=== PATIENT | female | born 1990 | race Caucasian/White ===

== ENCOUNTER 2023-01-14 18:30 | Outpatient (RCR) | payer SELFPAY ==
--- NOTE | 2023-01-10 16:07 | HP.PTEVAL_ITS ---
Patient's Visit Information ISH ABBASI is a 32 year old F referred to Physical Therapy by Dr. Hank Jauregui MD with a diagnosis of ACUTE BILTAERAL LOW BACK PAIN WITHOUT SCIATICA. Date of Evaluation: 01/10/23 Physical Therapist: Jack Orona, PT, Cert MDT, OCS - Visit Plan Frequency: 2x /Week Duration: 4 Weeks Plan: PT INTERVETIONS AVTAR EX'S ,MANUAL THERAPY ,PROGRESS TO DLS ,PSOTURAL EX'S AND MODALTIES FOR PAIN RELIEVE - Subjective This 32 y/o female presents to physical therapy with low back pain. Patient `~ 6weeks twisting and bending at work . Patient had pain following day. Seen chiropractor following week had adjustment did not help. Seen Dr. and urgent care had x-rays -. Prescribed medication diclofenac ,muscle relaxer. Aggravating factors standing/walking, bending/lifting and sitting. Alleviating factors rest. Denies paresthesia/tingling in legs. Coughing/sneezing+. Bowel/bladder-. Pain affects sleeping. Patient back injury in HS . Patient pain affects QOL and function. Goals to no pain. Plan to have orthopedic Back DR consult January 22. SOCAIL: single. [facility] [employer] - Pain Bilateral Back Pain Intensity (Out of 10): 10 Pain Intensity Range: 10 - Objective POSTURE: mild forward posture guarded. GAIT: ambulates guarded gait slow mild forward posture reciprocal pattern. NEURO: denies paresthesia/tingling ,reflexes L3-4,L4-5,L5-S1 2/3. LUMBAR ROM: flexion severe loss ,extension severe pain , side glides mod loss. FLEXABILIY: mod tight. MMT: quads/hams 4/5 ,hip flexion/abduction peak force 0 ,ankle GTE 4/5 - Special Tests L/S Slump test left side: Positive L/S Slump test right side: Positive L/S Left Straight Leg Raise: Positive L/S Right Straight Leg Raise: Positive Lumbar Standing: Flexion - Mechanical Response: No effect Lumbar Standing: Flexion - Symptoms During Testing: Increases Lumbar Standing: Flexion - Symptoms After Testing: Worse Lumbar Standing: Extension - Mechanical Response: No effect Lumbar Standing: Extension - Symptoms During Testing: Increases Lumbar Standing: Extension - Symptoms After Testing: Worse Lumbar Standing: Right Side Glides - Mechanical Response: No effect Lumbar Standing: Right Side [place] - Symptoms During Testing: No effect Lumbar Standing: Right Side [place] - Symptoms After Testing: No effect Lumbar Standing: Left Side [place] - Mechanical Response: No effect Lumbar Standing: Left Side [place] - Symptoms During Testing: No effect Lumbar Standing: Left Side [place] - Symptoms After Testing: No effect Lumbar Lying: Flexion - Mechanical Response: No effect Lumbar Lying: Flexion - Symptoms During Testing: Increases Lumbar Lying: Flexion - Symptoms After Testing: Worse Lumbar Lying: Extension - Mechanical Response: No effect Lumbar Lying: Extension - Symptoms During Testing: Increases Lumbar Lying: Extension - Symptoms After Testing: No worse - Balance/Special Test Scores Oswestry Low Back Score: 38 - Goals Goal 1:: Patient to be I with HEP for lumbar . Goal Time Frame: 4-6 Weeks Goal 2:: Patient improve posture/body mechanics 80% of the time. Goal 3:: Patient to improve lumbar ROM for function of recovery for job demands Goal Time Frame: 4-6 Weeks Goal 4:: Patient to improve back oswestry score by 5 points or > to improve QOL Goal Time Frame: 4-6 Weeks Goal 5:: Patient to demonstrate 50% improvement with decrease pain and improved function Goal Time Frame: 4-6 Weeks - Rehabilitation Potential Physical Therapy Diagnosis: This patient has possible symmetrical disc derangement with pain with positioning ,motion testing ,poor ROM weakness hip thus benefit from skilled PT Rehabilitation Potential: Good - Anticipated Interventions Patient/Client Instruction: Educate patient on: Condition, Plan of Care For the Purpose of:: To decrease pain, To improve nutrient delivery to tissue, To improve muscle performance and motor function, To improve ability to perform ADL's, To increase tolerance to activity/condition/position, To improve ability of physical actions for home/community/work/leisure, To improve gait and locomotor functions, To improve health of tissue, To decrease soft tissue restriction, To increase flexibility/ROM, To improve balance, To reduce risk of recurrence, To prevent re-injury Therapeutic Exercise to Include: Strength training, Body mechanics, Postural training, Flexibilty training, Dynamic Lumbar Stabilization, [place] Exercises For the Purpose of:: To decrease pain, To increase ROM, To improve muscle performance and motor function, To increase tolerance to activity/condi tion/position, To improve ability of physical actions for home/community/work/leisure, To improve gait and locomotor functions, To improve health of tissue, To decrease soft tissue restriction, To increase flexibility/ROM, To reduce risk of recurrence, To prevent re-injury TENS: Yes IF ES: Yes Other electric stimulation: Yes Cryotherapy (ice pack, ice massage): Yes Thermo therapy (hot pack): Yes Ultrasound (thermal/non thermal): Yes For the Purpose of:: To decrease swelling/inflammation, To increase ROM, To improve nutrient delivery to tissue, To increase oxygenation perfusion, To improve health of tissue, To decrease soft tissue restriction, To increase flexibility/ROM Thank you for the opportunity to evaluate your patient. For Medicare and Medicare HMO plans, please review the plan of care and approve it. It will need to be FAXED BACK to us at [phone] for Medicare purposes. For Medicare only, by signing this I certify the plan of care. Please let me know if there are questions or concerns regarding this plan of care. Physician Signature: Date:
--- NOTE | 2023-05-14 10:54 | HP.PT.NRP ---
Patient Information Patient Information: ISH ABBASI was seen in my office for initial evaluation on 01/10/23. The following Plan of Care was established for this patient: POC Established Initial Frequency: 2x /Week Initial Duration: 4 Weeks Anticipated Interventions Patient/Client Instruction: Educate patient on: Condition and Plan of Care For the Purpose of:: To decrease pain, To improve nutrient delivery to tissue, To improve muscle performance and motor function, To improve ability to perform ADL's, To increase tolerance to activity/condition/position, To improve ability of physical actions for home/community/work/leisure, To improve gait and locomotor functions, To improve health of tissue, To decrease soft tissue restriction, To increase flexibility/ROM, To improve balance, To reduce risk of recurrence and To prevent re-injury Therapeutic Exercise to Include: Strength training, Body mechanics, Postural training, Flexibilty training, Dynamic Lumbar Stabilization and [place] Exercises For the Purpose of:: To decrease pain, To increase ROM, To improve muscle performance and motor function, To increase tolerance to activity/condition/position, To improve ability of physical actions for home/community/work/leisure, To improve gait and locomotor functions, To improve health of tissue, To decrease soft tissue restriction, To increase flexibility/ROM, To reduce risk of recurrence and To prevent re-injury TENS: Yes IF ES: Yes Other electric stimulation: Yes Cryotherapy (ice pack, ice massage): Yes Thermo therapy (hot pack): Yes Ultrasound (thermal/non thermal): Yes For the Purpose of:: To decrease swelling/inflammation, To increase ROM, To improve nutrient delivery to tissue, To increase oxygenation perfusion, To improve health of tissue, To decrease soft tissue restriction and To increase flexibility/ROM Last Seen Last Seen: This patient was last seen in our office . Pertinent comments regarding their Physical therapy will appear below: Patient was seen for PT for lumbar Pain with possible disc HNP recommend returning to [facility] At this point I will be discontinuing this patient from physical therapy. I would be happy to see this patient again in the future if found appropriate by the physician. Thank you! Jack Orona, PT, Cert MDT, OCS Balance/Gait/Functional tests Balance/Special Test Scores Oswestry Low Back Score: 38
== END 2023-01-14 19:00 | disposition home or self-care (01) ==
LOC: PT 18:30
PROVIDERS: PCP Family Medicine; Referring Provider Family Medicine; Visit Provider Family Medicine
DX: M54.50 Low back pain, unspecified (principal)
CPT/HCPCS: 97110; 97161

== ENCOUNTER → 2025-06-18 | Outpatient (CLI) | payer BC, SELFPAY ==
--- NOTE | 2025-06-18 12:00 | MASS_PTH ---
PATIENT: ISH ABBASI LOC: [facility] U#:[id number] AGE/SX: 34/F ROOM: RE06/18/[address]: Dr. Ramiro Abbasi MD : 1990 BED: DIS: 06/18/2025 SPEC #: [id number] RECD: 06/18/25 15:10 STATUS: [place] REQ #: [id number] NISA: 06/18/25 12:[address]: Ramiro Abbasi DEPT: SURGICAL PATHOLOGY RECD BY: Nicholas Kim ENTERED: 06/18/25 15:58 SP TYPE: Mass OTHR DR: Dr. Hank Jauregui MD Tissues: A - Finger, NOS Procedures: Surgery Specimen Level III HEADER OPERATION: Excision mass of right long finger PRE-OP DIAGNOSIS: Right long finger mass TISSUE SUBMITTED: A- Right long finger mass MICROSCOPIC DIAGNOSIS A. Soft tissue, right long finger, excision: * Digital mucous cyst MICROSCOPIC DESCRIPTION Slides are reviewed. GROSS DESCRIPTION A. Received in formalin labeled with the patient's name and date of . Designated as mass right long finger is a 0.9 x 0.7 x 0.3 cm intact cyst with a portion of, haywood-white fibrous tissue. 1 is bisected revealing clear gelatinous material. Entirely submitted in 1 cassette. [place] 06/18/2025 CPT:71094
--- OUTSIDE RECORDS SUMMARY | 2025-06-18 16:55 | XMS RPT_ITS | CCD ---
Author Organization [facility] CliniSyms Care Team Providers Care Sample Sewer Name Role Phone VACCARIELLO, SAIMA Unavailable Unavailable VACCARIELLO, SAIMA Unavailable Unavailable VACCARIELLO, SAIMA Unavailable Unavailable VACCARIELLO, SAIMA Unavailable Unavailable PROVIDER, UNKNOWN Unavailable Unavailable PROVIDER, UNKNOWN Unavailable Unavailable PROVIDER, UNKNOWN Unavailable Unavailable AXEL FRANK Unavailable Unavailable AXEL FRANK Unavailable Unavailable AXEL FRANK Unavailable Unavailable VACCARIELLO, SAIMA Unavailable Unavailable PROVIDER, UNKNOWN Unavailable Unavailable PROVIDER, UNKNOWN Unavailable Unavailable PROVIDER, UNKNOWN Unavailable Unavailable SAIRA, BYRON T Unavailable Unavailable SAIRA, BYRON T Unavailable Unavailable SAIRA, BYRON T Unavailable Unavailable VACCARIELLO, SAIMA Unavailable Unavailable PROVIDER, UNKNOWN Unavailable Unavailable PROVIDER, UNKNOWN Unavailable Unavailable PROVIDER, UNKNOWN Unavailable Unavailable SAIRA, BYRON T Unavailable Unavailable SAIRA, BYRON T Unavailable Unavailable VACCARIELLO, SAIMA Unavailable Unavailable SAIRA, BYRON T Unavailable Unavailable VACCARIELLO, SAIMA Unavailable Unavailable PROVIDER, UNKNOWN Unavailable Unavailable PROVIDER, UNKNOWN Unavailable Unavailable PROVIDER, UNKNOWN Unavailable Unavailable JOSE LUIS Unavailable Unavailable JOSE LUIS Unavailable Unavailable JOSE LUIS Unavailable Unavailable VACCARIELLO, SAIMA Unavailable Unavailable PROVIDER, UNKNOWN Unavailable Unavailable PROVIDER, UNKNOWN Unavailable Unavailable PROVIDER, UNKNOWN Unavailable Unavailable Vaccariello, Saima Referring Unavailable Vaccariello, Saima Attending Unavailable Vaccariello, Saima Primary Care Unavailable Saima Ferraro MD Unavailable [facility] Unavailable Dr. Jose Luis MD Unavailable Dr. Ray Duffy DO Unavailable [phone] Laurel Silva MD Unavailable America BAEZ, Martha Unavailable Ata BAEZ, Dorinda Unavailable Unavailable Axel Frank MD Unavailable Maryan Whitehead Unavailable Unavailable Sherri GUAN, Amy A Unavailable Unavaila johan Abbasi RN, Gloria Unavailable [phone] [place] COMPUTER SYSTEMS INFORMATION DIRECTOR, Mary K Unavailable Unavai lable Salomón COMPUTER SYSTEMS INFORMATION DIRECTOR, Laurel M Unavailable Unavailab le Demarco COMPUTER SYSTEMS INFORMATION DIRECTOR, Balbina Torres Unavailable Unavailab le Vess COMPUTER SYSTEMS INFORMATION DIRECTOR, Darrell Cesar Unavailable Unavailable Wengerd COMPUTER SYSTEMS INFORMATION DIRECTOR, Livier Unavailable Unavailabl e Unavailable Unavailable Allergies Allergy Classification Reported Allergen(s) Allergy Type Date of Onset Reaction(s) Facility (1 source) Nyquil Drug allergy (disorder) [facility] Repository (1 source) No Known Allergies; Translations: [No Known Allergies] Propensity to adverse reactions (disorder) [facility] Repository Medications Completed/Discontinued Medications Medication Drug Class(es) Dates Sig (Normalized) Sig (Original) augmented betamethasone 0.5 mg/ml topical cream (1 source) Corticosteroid Start: 8 End: 9 Betamethasone Dipropionate Aug 0.05 % External Cream ; 1 (one) Application Application aaa bid for 0 days Quantity: 60 {Gram} Refills: 2 Ordered: 18-Sep-2018 SASHA Cross Start: 14-Oct-2017 End: 18-Sep-2018 Status: Inactive cephalexin 500 mg oral capsule (1 source) Cephalosporin Antibacterial Start: 7 End: 8 take 2 capsules by mouth twice daily Cephalexin 500 MG Oral Capsule ; 2 (two) Capsule bid for 10 days Quantity: 40 {Capsule} Refills: 0 Ordered: 10-Sep-2017 MD Axel Frank Start: 10-Sep-2017 End: 20-Sep-2017 Status: Inactive cyclobenzaprine hydrochloride 10 mg oral tablet (1 source) Muscle Relaxant Start: 3 End: 5 cyclobenzaprine 10 mg tablet ; 1 (one) Tablet q8hrs, prn pain for 0 days Quantity: 30 {Tablet} Refills: 0 Ordered: 27-Jan-2025 SASHA Cross Start: 27-Dec-2022 End: 27-Jan-2025 Status: Inactive diclofenac potassium 50 mg oral tablet (1 source) Nonsteroidal Anti-inflammatory Drug Start: 3 End: 5 diclofenac potassium 50 mg tablet ; 1 (one) Tablet q12hrs with food for 0 days Quantity: 20 {Tablet} Refills: 0 Ordered: 27-Jan-2025 SASHA Cross Start: 27-Dec-2022 End: 27-Jan-2025 Status: Inactive Ethinyl Estradiol / norgestimate (1 source) Progestin, Estrogen Start: 8 End: 9 take 1 tablet by mouth once daily Sprintec 28 0.25-35 MG-MCG Oral Tablet ; 1 (one) Tablet Tablet daily for 0 days Quantity: 3 {Package} Refills: 0 Ordered: 18-Sep-2018 SASHA Cross Start: 12-Feb-2018 End: 18-Sep-2018 Status: Inactive ketotifen 0.25 mg/ml ophthalmic solution (1 source) Histamine-1 Receptor Inhibitor Start: 5 End: 6 take 1 drop(s) into the eye(s) twice daily KETOTIFEN FUMARATE, 0.025% (Ophthalmic Solution) ; 1 (one) drop to each eye twice daily for 0 days Quantity: 1 {Bottle} Refills: 1 Ordered: 11-Apr-2016 SASHA Cross Start: 31-May-2015 End: 11-Apr-2016 Status: Inactive loratadine 10 mg oral tablet (1 source) Start: 5 End: 6 take 1 tablet by mouth once daily LORATADINE, 10MG (Oral Tablet) ; 1 (one) Tablet daily for 0 days Quantity: 30 {Tablet} Refills: 1 Ordered: 11-Apr-2016 SASHA Cross Start: 31-May-2015 End: 11-Apr-2016 Status: Inactive 1 ml medroxyPROGESTERone acetate 150 mg/ml injection (2 sources) Progestin Start: 7 End: 8 Depo-Provera 150 MG/ML Intramuscular Suspension ; 1 (one) Suspension Suspension as directed for 90 days Quantity: 1 {Vial} Refills: 3 Ordered: 14-Oct-2017 SASHA Cross Start: 01-Apr-2017 End: 14-Oct-2017 Status: Inactive oxyCODONE hydrochloride 5 mg oral tablet (1 source) Opioid Agonist Start: 3 End: 5 oxyCODONE 5 mg tablet ; 1 (one) Tablet qhs, prn severe pain for 0 days Quantity: 7 {Tablet} Refills: 0 Ordered: 27-Jan-2025 SASHA Cross Start: 27-Dec-2022 End: 27-Jan-2025 Status: Inactive pantoprazole 40 mg delayed release oral tablet (1 source) Proton Pump Inhibitor Start: 3 End: 5 pantoprazole 40 mg tablet,delayed release ; 1 (one) Tablet daily for 0 days Quantity: 30 {Tablet} Refills: 1 Ordered: 27-Jan-2025 SASHA Cross Start: 10-Oct-2022 End: 27-Jan-2025 Status: Inactive sulfamethoxazole 800 mg / trimethoprim 160 mg oral tablet (1 source) Dihydrofolate Reductase Inhibitor Antibacterial, Sulfonamide Antimicrobial Start: 7 End: 7 take 1 tablet by mouth twice daily Sulfamethoxazole-Tr imethoprim 800-160 MG Oral Tablet ; 1 (one) Tablet bid for 0 days Quantity: 20 {Tablet} Refills: 0 Ordered: 10-Sep-2017 MD Axel Frank Start: 06-Sep-2017 End: 10-Sep-2017 Status: Inactive Problems Active Problems Problem Classification Problem Date Documented Date Episodic/Chronic Abdominal pain (4 sources) Right upper quadrant pain; Translations: [Right upper quadrant pain] Onset: 02-19-2018 02-17-2018 Episodic Allergic reactions (5 sources) Inflammatory dermatosis; Translations: [Dermatitis, unspecified] 10-14-2017 Episodic Biliary tract disease (2 sources) Calculus of bile duct without cholangitis or cholecystitis without obstruction; Translations: [Disease of gallbladder, unspecified] Onset: 02-19-2018 Episodic Contraceptive and procreative management (20 sources) Patient encounter status; Translations: [Encounter for surveillance of injectable contraceptive] 04-03-2017 Episodic Esophageal disorders (2 sources) Gastroesophageal reflux disease; Translations: [Gastro-esophageal reflux disease without esophagitis] 12-27-2022 Chronic Immunizations and screening for infectious disease (1 source) Requires a hepatitis A vaccination; Translations: [Encounter for immunization] 09-14-2015 Episodic Menstrual disorders (2 sources) Amenorrhea; Translations: [Amenorrhea, unspecified] 02-12-2018 Chronic Open wounds of extremities (1 source) Dog bite of calf; Translations: [Open bite, left lower leg, initial encounter] 01-02-2016 Episodic Other complications of (2 sources) Rhesus isoimmunization, unspecified as to episode of care or not applicable 06-21-2014 Episodic Other connective tissue disease (2 sources) Ganglion of hand; Translations: [Ganglion, unspecified hand] 01-27-2025 Episodic Other connective tissue disease (1 source) Pain in left foot; Translations: [Pain in left foot] 06-24-2017 Episodic Other inflammatory condition of skin (2 sources) Pruritus, unspecified; Translations: [Unspecified pruritic disorder] Onset: 10-15-2017 10-15-2017 Episodic Other injuries and conditions due to external causes (1 source) Injury of muscle and tendon of long flexor muscle of toe at ankle and foot level; Translations: [Unspecified injury of muscle and tendon of long flexor muscle of toe at ankle and foot level, left foot, subsequent encounter] 02-18-2019 Episodic Other nutritional; endocrine; and metabolic disorders (8 sources) Body mass index 40+ - severely obese; Translations: [Body mass index (BMI) 40.0-44.9, adult] 10-08-2022 Chronic Other nutritional; endocrine; and metabolic disorders (3 sources) Morbid obesity; Translations: [Morbid (severe) obesity due to excess calories] 12-27-2022 Chronic Other nutritional; endocrine; and metabolic disorders (3 sources) Body mass index 30+ - obesity; Translations: [Obesity, unspecified] 10-08-2022 Chronic Other and delivery including normal (2 sources) care status; Translations: [Encounter for routine follow-up] 10-27-2014 Episodic Other screening for suspected conditions (not mental disorders or infectious disease) (2 sources) care status; Translations: [Encounter for screening of mother] 08-23-2014 Episodic Other skin disorders (2 sources) Folliculitis; Translations: [Follicular disorder, unspecified] 09-10-2017 Episodic Residual codes; unclassified (1 source) Immunization not carried out because of patient refusal; Translations: [Vaccination not carried out because of patient refusal] 10-08-2022 Episodic Residual codes; unclassified (4 sources) Influenza vaccination declined; Translations: [Immunization not carried out because of patient refusal] 10-14-2017 Episodic Residual codes; unclassified (1 source) Non-smoker; Translations: [Other specified health status] 12-27-2022 Episodic Residual codes; unclassified (1 source) Not up to date with immunizations; Translations: [Other specified personal history presenting hazards to health] 09-18-2018 Episodic Skin and subcutaneous tissue infections (1 source) Cellulitis; Translations: [Cellulitis, unspecified] 02-15-2017 Episodic Spondylosis; intervertebral disc disorders; other back problems (1 source) Acute low back pain; Translations: [Lumbago] 12-27-2022 Episodic Unclassified (1 source) Low back pain, unspecified; Translations: [Low back pain, unspecified] Onset: 01-18-2023 Unclassified (1 source) deliveries 10-08-2022 Comment on above: 1. Unclassified (1 source) Number of Children 10-08-2022 Comment on above: 1. Unclassified (1 source) Number of Pregnancies 10-08-2022 Comment on above: 1. Past or Other Problems Problem Classification Problem Date Documented Da te Episodic/Chronic Unclassified (1 source) Back pain - The onset of the back pain has been sudden and has been occurring in a persistent pattern for 3 weeks. The pain is characterized as a dull ache. The pain is located in the lower back. Note for Back pain: -Went to Urgent care last week and given prednisone and cyclobenzaprine. 12-27-2022 Unclassified (2 sources) Well adult female - The patient feels well with no complaints, has good energy level and is sleeping well. The patient is not using any method of contraception at this time. The patient takes no supplemental vitamins & iron. The patient exercises none (walks over 10k steps daily at work). The patient sleeps 6 hours per night. 10-08-2022 Unclassified (1 source) [ADDITIONAL REASON] Abdominal pain - The onset of the abdominal pain has been gradual and has been occurring for months. The pain is described as a moderate burning, dull ache and pressure sensation. Note for Abdominal pain: -Also reports something comes out of her umbilicus on a regular basis. 10-08-2022 Unclassified (1 source) Pre-operative clearance - Surgical procedure(s) planned: other (left foot surgery). Date of procedure: (03/06/19) 02-18-2019 Unclassified (1 source) Abdominal pain - The onset of the abdominal pain has been acute and has been occurring in a persistent pattern for 6 days. The course has been increasing. The pain is described as a severe sharp pain, pressure sensation and fullness. The pain is located in the right upper quadrant and radiates to the right shoulder. The symptoms are aggravated by meals (1/2 to 1 hour after eating) but have no relieving factors. The symptoms have been associated with abdominal distention, amenorrhea (stopped Depo March 2017 , has not had menses since then-has not had intercourse), bloating, diarrhea, heartburn and nausea, while the symptoms have not been associated with constipation or vomiting. Note for Abdominal pain: reviewed by [facility] 02-17-2018 Unclassified (1 source) Rash - The onset of the rash has been gradual and has been occurring in a persistent pattern for 4 weeks. The rash is characterized as red. The rash was first seen on the lower extremity. It spread to the trunk and the lower extremity. There has been associated itching and erythema. Note for Rash: -Seen 09/06 when child was in and given bactrim for folliculitis. Seen 09/10 by [facility] who said she was allergic to sulfa and put her on cephalexin. She then went to ER mid September and was given something for itching but she does not know what it was. 10-15-2017 Unclassified (1 source) [ADDITIONAL REASON] Transition into care - The patient is transitioning into care from an emergency room and a summary of care was not provided. 10-15-2017 Unclassified (1 source) Rash - The onset of the rash has been acute. Note for Rash: Was seen 09-06-17 with diagnosis of foliculitis and given a prescription for Bactrim DS. Itchy rash has been spreading. 09-10-2017 Unclassified (1 source) Foot pain - The pain is in the left foot and is located in the dorsal foot. The onset of the foot pain was sudden and has been occurring in a persistent pattern for 1 day. The course has been increasing. The pain is moderate. The pain is characterized as a sharp stabbing. The pain is aggravated by physical activity. The pain has not been relieved by anything. The symptoms have been associated with painful ROM, but have not been associated with swelling, joint swelling or fever. There have been no previous diagnostic tests. There have been no previous evaluations. 06-24-2017 Unclassified (1 source) umbilicus drainage - 2 weeks ago had one episode of foul smelling drischarge from umbilicus. Continues to have odor but no drainage. 02-15-2017 Unclassified (1 source) Pelvic pain - The onset of the pelvic pain began gradually over time and has been occurring for months. The pain is described as a dull ache. Menstruation is absent (due to Depo). Currently : no. 04-19-2016 Unclassified (1 source) dog bite - Bit on the right calf 4 days ago by a relatives house dog. It was unprevoked. It is still sore. 01-02-2016 Unclassified (1 source) Cold Symptoms - Symptoms include sneezing, nasal congestion (and chest congestion), sore throat, hoarseness, productive cough, fever (have felt feverish), chills, general malaise, headache and facial pain (woke up this morning with her top lip swollen. ), but do not include runny nose or ear pain. The onset was sudden 5 hour(s) ago. The symptoms occur constantly. The patient describes this as moderate in severity and unchanged. The patient is not currently being treated for this problem. Risk factors do not include smoking. The patient has not been exposed to an individual with a cough, an individual with an upper respiratory infection, an individual with similar symptoms, an individual with strep or secondhand smoke. Medical history includes seasonal allergies (usually spring; no known allergic exposure), but patient denies history of recurrent sinusitis, asthma, tonsillectomy or recurrent ear infections. Note for Upper respiratory infection: Reports that her eyes are burning. Has reddened scleras bilaterally and has watery eyes (just started today) 05-31-2015 Unclassified (1 source) Post- visit - The patient is here for a scheduled follow-up visit after an emergent (failure to progress after SROM). There were no complications. The patient feels well with no complaints, is sleeping well and has good energy level. There are no urinary problems. There are no bowel problems. Perineum/wound: abdominal wound healing well. The patient is formula feeding the . There are no feeding difficulties. Menstruation: Last menstrual period date: (now). Patient states that sexual activity has not resumed and contraception is not used. The patient has resumed work and resumed physical activity. Patient states that she is coping/adjusting to motherhood well and family is interacting well with . 10-27-2014 Unclassified (1 source) s/p c/s incision check 09-23-2014 Unclassified (1 source) visit - The patient is here for a 35 week visit. 08-23-2014 Unclassified (1 source) visit - The patient is here for a 33 week visit. 08-09-2014 Unclassified (1 source) visit - The patient is here for a 30 week visit. 07-19-2014 Unclassified (1 source) visit - The patient is here for a 26 week visit. 06-21-2014 Unclassified (1 source) visit - The patient is here for a 21 week visit. 05-19-2014 Unclassified (1 source) visit - The patient is here for a 17 week visit. 04-19-2014 Unclassified (1 source) visit - The patient is here for a 13 week visit. 03-22-2014 Unclassified (1 source) visit (initial) - The patient suspects she is due to a positive home test. Last menstrual period: 8 weeks ago. - (1). There has been no vaginal discharge. There has been no vaginal bleeding. There have been no urinary problems. 02-19-2014 Results Test Name Value Interpretation Reference Range Facility Inital Evaluation (1) - PT 01-10-2023 Inital Evaluation (1) - PT [facility] [address] [place] [address]. [address] [place] [address] / REHABILITATION SERVICES INITIAL EVALUATION MR#: [id number] Acct: [id number] Name: BRYNN ABBASI Rep #: [id number] : 1990 32 From: Jack Orona PT, Cert. T, OCS Referring Dr.: Dr. Saima Ferraro MD Status: REG RCR Insurance: [facility] [employer] SELF PAY INSURANCE Patient's Visit Information BRYNN ABBASI is a 32 year old F referred to Physical Therapy by Dr. Saima Ferraro MD with a diagnosis of ACUTE BILTAERAL LOW BACK PAIN WITHOUT SCIATICA. Date of Evaluation: 01/10/23 Physical Therapist: Jcak Orona, PT, Cert MDT, OCS - Visit Plan Frequency: 2x /Week Duration: 4 Weeks Plan: PT INTERVETIONS AVTAR EX'S ,MANUAL THERAPY ,PROGRESS TO DLS ,PSOTURAL EX'S AND MODALTIES FOR PAIN RELIEVE - Subjective This 32 y/o female presents to physical therapy with low back pain. Patient ` 6weeks twisting and bending at work . Patient had pain following day. Seen chiropractor following week had adjustment did not help. Seen DrRachel and urgent care had x-rays -. Prescribed medication diclofenac ,muscle relaxer. Aggravating factors standing/walking, bending/lifting and sitting. Alleviating factors rest. Denies paresthesia/tingling in legs. Coughing/sneezing+. Bowel/bladder-. Pain affects sleeping. Patient back injury in HS . Patient pain affects QOL and function. Goals to no pain. Plan to have orthopedic Back DR consult January 22. SOCAIL: single. [facility] [employer] - Pain Bilateral Back Pain Intensity (Out of 10): 10 Pain Intensity Range: 10 - Objective POSTURE: mild forward posture guarded. GAIT: ambulates guarded gait slow mild forward posture reciprocal pattern. NEURO: denies paresthesia/tingling ,reflexes L3-4,L4-5,L5-S1 2/3. LUMBAR ROM: flexion severe loss ,extension severe pain , side glides mod loss. FLEXABILIY: mod tight. MMT: quads/hams 4/5 ,hip flexion/abduction peak force 0 ,ankle GTE 4/5 - Special Tests L/S Slump test left side: Positive L/S Slump test right side: Positive L/S Left Straight Leg Raise: Positive L/S Right Straight Leg Raise: Positive Lumbar Standing: Flexion - Mechanical Response: No effect Lumbar Standing: Flexion - Symptoms During Testing: Increases Lumbar Standing: Flexion - Symptoms After Testing: Worse Lumbar Standing: Extension - Mechanical Response: No effect Lumbar Standing: Extension - Symptoms During Testing: Increases Lumbar Standing: Extension - Symptoms After Testing: Worse Lumbar Standing: Right Side Glides - Mechanical Response: No effect Lumbar Standing: Right Side [place] - Symptoms During Testing: No effect Lumbar Standing: Right Side [place] - Symptoms After Testing: No effect Lumbar Standing: Left Side [place] - Mechanical Response: No effect Lumbar Standing: Left Side [place] - Symptoms During Testing: No effect Lumbar Standing: Left Side [place] - Symptoms After Testing: No effect Lumbar Lying: Flexion - Mechanical Response: No effect Lumbar Lying: Flexion - Symptoms During Testing: Increases Lumbar Lying: Flexion - Symptoms After Testing: Worse Lumbar Lying: Extension - Mechanical Response: No effect Lumbar Lying: Extension - Symptoms During Testing: Increases Lumbar Lying: Extension - Symptoms After Testing: No worse - Balance/Special Test Scores Oswestry Low Back Score: 38 - Goals Goal 1:: Patient to be I with HEP for lumbar . Goal Time Frame: 4-6 Weeks Goal 2:: Patient improve posture/body mechanics 80% of the time. Goal 3:: Patient to improve lumbar ROM for function of recovery for job demands Goal Time Frame: 4-6 Weeks Goal 4:: Patient to improve back oswestry score by 5 points or > to improve QOL Goal Time Frame: 4-6 Weeks Goal 5:: Patient to demonstrate 50% improvement with decrease pain and improved function Goal Time Frame: 4-6 Weeks - Rehabilitation Potential Physical Therapy Diagnosis: This patient has possible symmetrical disc derangement with pain with positioning ,motion testing ,poor ROM weakness hip thus benefit from skilled PT Rehabilitation Potential: Good - Anticipated Interventions Patient/Client Instruction: Educate patient on: Condition, Plan of Care For the Purpose of:: To decrease pain, To improve nutrient delivery to tissue, To improve muscle performance and motor function, To improve ability to perform ADL's, To increase tolerance to activity/condition/posit ion, To improve ability of physical actions for home/community/work/leis ure, To improve gait and locomotor functions, To improve health of tissue, To decrease soft tissue restriction, To increase flexibility/ROM, To improve balance, To reduce risk of recurrence, To prevent re-injury Therapeutic Exercise to Include: Strength training, Body mechanics, Postural training, Flexibilty training, Dynamic Lumbar Stabilization, Avtar Exercis (more content not included)... Normal [facility] THINPREP PAP AND HPV mRNA E6 /E7on 10-09-2022 CLINICAL INFORMATION: Normal [facility] Comment on above: Result Comment: None given Performed By: #### 9 0931 #### [facility], [address] [place] [address] Manager Track: Ronald Adames MD COMMENT Normal [facility] Comment on above: Result Comment: EXPL ANATORY NOTE: The Pap is a screening test for cervical cancer. It is not a diagnostic test and is subject to false negative and false positive results. It is most reliable when a satisfactory sample, regularly obtained, is submitted with relevant clinical findings and history, and when the Pap result is evaluated along with historic and current clinical information. Performed By: #### 9 0931 #### [facility] [id number] Manager Track: Ronald Adames MD DOLL SURGEON: Normal [facility] Comment on above: Result Comment: GCINDA(ASCP) CT screening location: [place] [address]. Performed By: #### 9 0931 #### [facility] [place] [address] Manager Track: Ronald Adames MD HPV mRNA E6/E7 Not detected Normal Not Detected [facility] Comment on above: Result Comment: Meth odology: Hand Shaker-Mediated Amplification This assay detects E6/E7 viral messenger RNA (mRNA) from 14 high-risk HPV types (16,18,31,33,35,39,45,51,52,56,58,59,66,68). Cervical sources are required for HPV testing. If a vaginal source from a patient who has had a total hysterectomy with removal of cervix was submitted, please contact the testing laboratory for alternative testing options. For additional information, please refer to http://education.VerticalResponse.EasyCopay/faq/JYB526v4 (This link if provided for information/ educational purposes only.) Performed By: #### 9 0931 #### [facility], [address] [place] [address] Manager Track: Ronald Adames MD INTERPRETATION/RESUL T: Normal [facility] Comment on above: Result Comment: Nega tive for intraepithelial lesion or malignancy. Performed By: #### 9 0931 #### [facility], [address] [place] [phone] Manager Track: Ronald Adames MD LMP: Normal [facility] Comment on above: Result Comment: None given Performed By: #### 9 0931 #### [facility], [address] [place] [phone] Manager Track: Ronald Adames MD PREV. BX: Normal [facility] Comment on above: Result Comment: None given Performed By: #### 9 0931 #### [facility], [address] [place] [phone] Manager Track: Ronald Adames MD PREV. PAP: Normal [facility] Comment on above: Result Comment: None given Performed By: #### 9 0931 #### [facility], [address] [place] [phone] Manager Track: Rnoald Adames MD SOURCE: Normal [facility] Comment on above: Result Comment: None given Performed By: #### 9 0931 #### [facility], [address] [place] [phone] Manager Track: Ronald Adames MD STATEMENT OF ADEQUACY: Normal [facility] Comment on above: Result Comment: Sati sfactory for evaluation. Endocervical/transformation zone component present. Performed By: #### 9 0931 #### [facility], [address] [place] [phone] Manager Track: Ronald Adames MD No Panel Informationon 10-08 [id number] SEE NOTE Normal [facility], [facility].; [facility] CLINICAL INFORMATION: SEE NOTE Normal [facility], [facility].; [facility] DOLL SURGEON: SEE NOTE Normal [facility], [facility].; [facility] HPV mRNA E6/E7 Not detected Normal [facility], [facility].; [facility] INTERPRETATION/RESUL T: SEE NOTE Normal [facility], [facility].; [facility] LMP: SEE NOTE Normal [facility] [employer] PREV. BX: SEE NOTE Normal [employer] PREV. PAP: SEE NOTE Normal [employer] SOURCE: SEE NOTE Normal [facility] [employer] STATEMENT OF ADEQUACY: SEE NOTE Normal [employer] COMPREHENSIVE METABOLIC PANE [facility] 08-28-2022 Albumin [Mass/Vol] 4.4 g/dL Normal 3.6-5.1 [facility] Comment on above: Performed By: #### 7 600, 28824 #### [facility] [place] [address] Manager Track: Ronald Adames MD Albumin/Globulin [Mass ratio] 2.0 {ratio} Normal 1.0-2.5 [facility] Comment on above: Performed By: #### 7 600, 62115 #### [facility] [place] [address] Manager Track: Ronald Adames MD ALP [Catalytic activity/Vol] 41 U/L Normal 31-125 [facility] Comment on above: Performed By: #### 7 600, 91572 #### [facility] [place] [address] Manager Track: Ronald Adames MD ALT [Catalytic activity/Vol] 8 U/L Normal 6-29 [facility] Comment on above: Performed By: #### 7 600, 57053 #### [facility] [place] [address] Manager Track: Ronald Adames MD AST [Catalytic activity/Vol] 16 U/L Normal 10-30 [facility] Comment on above: Performed By: #### 7 600, 55078 #### [facility] [place] [address] Manager Track: Ronald Adames MD Bilirubin [Mass/Vol] 0.6 mg/dL Normal 0.2-1.2 [facility] Comment on above: Performed By: #### 7 600, 16035 #### [facility] [address], [address] [place] [address] Manager Track: Ronald Adames MD BUN/CREATININE RATIO NOT APPLICABLE Normal 6-22 [facility] Comment on above: Performed By: #### 7 600, 59100 #### [facility] [place] [address] Manager Track: Ronald Adames MD Calcium [Mass/Vol] 9.3 mg/dL Normal 8.6-10.2 [facility] Comment on above: Performed By: #### 7 600, 20262 #### [facility] [place] [address] Manager Track: Ronald Adames MD Chloride [Moles/Vol] 104 mmol/L Normal 98-110 [facility] Comment on above: Performed By: #### 7 600, 55317 #### [facility] of [address], [address] [place] [address] Manager Track: Ronald Adames MD CO2 [Moles/Vol] 29 mmol/L Normal 20-32 [facility] Comment on above: Performed By: #### 7 600, 45000 #### [facility] [place] [address] Manager Track: Ronald Adames MD Creatinine [Mass/Vol] 0.70 mg/dL Normal 0.50-0.97 [facility] Comment on above: Performed By: #### 7 600, 15120 #### [facility] [place] [address] Manager Track: Ronald Adames MD GFR/1.73 sq M.predicted among non-blacks MDRD (S/P/Bld) [Vol rate/Area] 119 mL/min/{1.73_m2} Normal > OR = 60 [facility] Comment on above: Result Comment: The eGFR is based on the CKD-EPI 202 equation. To calculate the new eGFR from a previous Creatinine or Cystatin C result, go to https://www.kidney.org/professionals/ kdoqi/gfr%5Fcalculator Performed By: #### 7 600, 83509 #### [facility] [place] [address] Manager Track: Ronald Adames MD Globulin (S) [Mass/Vol] 2.2 g/dL Normal 1.9-3.7 [facility] Comment on above: Performed By: #### 7 600, 70354 #### [facility] [place] [address] Manager Track: Ronald Adames MD Glucose [Mass/Vol] 91 mg/dL Normal 65-99 [facility] Comment on above: Result Comment: Fasting reference interval Performed By: #### 7 600, 04459 #### [facility] [place] [address] Manager Track: Ronald Adames MD Potassium [Moles/Vol] 4.2 mmol/L Normal 3.5-5.3 [facility] Comment on above: Performed By: #### 7 600, 87349 #### [facility] [place] [address] Manager Track: Ronald Adames MD Protein [Mass/Vol] 6.6 g/dL Normal 6.1-8.1 [facility] Comment on above: Performed By: #### 7 600, 71050 #### [facility] of [place] [address] Manager Track: Ronald Adames MD Sodium [Moles/Vol] 140 mmol/L Normal 135-146 [facility] Comment on above: Performed By: #### 7 600, 18289 #### [facility] of [place] [address] Manager Track: Ronald Adames MD Urea nitrogen [Mass/Vol] 14 mg/dL Normal 7-25 [facility] Comment on above: Performed By: #### 7 600, 84786 #### [facility] of [address] [phone] Manager Track: Ronald Adames MD LIPID PANEL, [facility] 12-1 Cholesterol [Mass/Vol] 199 mg/dL Normal <200 [facility] Comment on above: Performed By: #### 7 600, 48526 #### [facility] [address], [address] [place] [address] Manager Track: Ronald Adames MD Cholesterol in HDL [Mass/Vol] 56 mg/dL Normal > OR = 50 [facility] Comment on above: Performed By: #### 7 600, 56107 #### [facility] [address], [address] [place] [address] Manager Track: Ronald Adames MD Cholesterol in LDL [Mass/Vol] 120 mg/dL High [facility] Comment on above: Result Comment: Refe rence range: <100 Desirable range <100 mg/dL for primary prevention; <70 mg/dL for patients with CHD or diabetic patients with > or = 2 CHD risk factors. LDL-C is now calculated using the Evan calculation, which is a validated novel method providing better accuracy than the Friedewald equation in the estimation of LDL-C. Iván SS et al. DENISSE. 2013;310(19): 3877-2082 (http://education.DoYouRemember.EasyCopay/faq/EYV226) Performed By: #### 7 600, 93334 #### [facility] [address], [address] [place] [address] Manager Track: Ronald Adames MD Cholesterol.total/Ch olesterol in HDL [Mass ratio] 3.6 {ratio} Normal <5.0 [facility] Comment on above: Performed By: #### 7 600, 54745 #### [facility] [address], [address] [place] [address] Manager Track: Ronald Adames MD NON HDL CHOLESTEROL 143 mg/dL (calc) High <130 [facility] Comment on above: Result Comment: For patients with diabetes plus 1 major ASCVD risk factor, treating to a non-HDL-C goal of <100 mg/dL (LDL-C of <70 mg/dL) is considered a therapeutic option. Performed By: #### 7 600, 75452 #### [facility] [address], [address] [place] [address] Manager Track: Ronald Adames MD Triglyceride [Mass/Vol] 124 mg/dL Normal <150 [facility] Comment on above: Performed By: #### 7 600, 71264 #### [facility] [address], [address] [place] [address] Manager Track: Ronald Adames MD Laboratory - Chemistry and C hemistry - challengeon 08-27-2022 Albumin [Mass/Vol] 4.4 g/dL Normal 3.6 - 5.1 g/dL [facility], [facility].; [place] [facility] Albumin/Globulin [Mass ratio] 2.0 {ratio} Normal 1.0 - 2.5 [facility] [employer] ALP [Catalytic activity/Vol] 41 U/L Normal 31 - 125 U/L [place] [employer] [employer] ALT [Catalytic activity/Vol] 8 U/L Normal 6 - 29 U/L [place] [employer] [employer] [employer] AST [Catalytic activity/Vol] 16 U/L Normal 10 - 30 U/L [place] [employer] [employer] [employer] Bilirubin [Mass/Vol] 0.6 mg/dL Normal 0.2 - 1 .2 mg/dL [place] [facility] [employer] Calcium [Mass/Vol] 9.3 mg/dL Normal 8.6 - 10. 2 mg/dL [place] [employer] [employer] Chloride [Moles/Vol] 104 mmol/L Normal 98 - 11 0 mmol/L [employer] [employer] Cholesterol [Mass/Vol] 199 mg/dL Normal [employer] [employer] [employer] Cholesterol in HDL [Mass/Vol] 56 mg/dL Normal [employer] [employer] Cholesterol in LDL [Mass/Vol] 120 mg/dL Abnormal [employer]. CO2 [Moles/Vol] 29 mmol/L Normal 20 - 32 mmol/L [facility].; [employer]. Creatinine [Mass/Vol] 0.70 mg/dL Normal 0.50 - 0.97 mg/dL [facility].; [place] [employer] GFR/1.73 sq M.predicted among non-blacks MDRD (S/P/Bld) [Vol rate/Area] 119 mL/min/{1.73_m2} Normal [facility].; [employer]. Glucose [Mass/Vol] 91 mg/dL Normal 65 - 99 mg/dL [facility].; [employer]. Potassium [Moles/Vol] 4.2 mmol/L Normal 3.5 - 5.3 mmol/L [facility].; [employer]. Protein [Mass/Vol] 6.6 g/dL Normal 6.1 - 8.1 g/dL [place] [employer] [facility].; [employer] Sodium [Moles/Vol] 140 mmol/L Normal 135 - 146 mmol/L [facility] [employer] in 2014[employer] [facility].; [employer]. Triglyceride [Mass/Vol] 124 mg/dL Normal [facility] [employer] [facility] by [employer] in 2014) [facility].; [employer]. Urea nitrogen [Mass/Vol] 14 mg/dL Normal 7 - 25 mg/dL [place] [employer] No Panel Informationon 08-27 BUN/CREATININE RATIO NOT APPLICABLE Normal 6 - 22 [place] [employer] [facility].; [employer]. CHOL/HDLC RATIO 3.6 Normal [facility], [facility].; [employer] GLOBULIN 2.2 Normal 1.9 - 3.7 [place] [employer] NON HDL CHOLESTEROL 143 Abnormal [facility] [employer] PREGUon 03-06-2019 HCG ( test) Ql (U) Negative Normal [facility] [place] Comment on above: Performed By: #### P REGU #### [address] [address] test (u) int HCG not detected. [facility] [place] Comment on above: Performed By: #### P REGU #### [address] [address] MRI ANKLE W/O CONTRAST LEFTo n 01-28-2019 MRI ANKLE W/O CONTRAST LEFT ORIGINAL MRI ANKLE W/O CONTRAST LEFT CLINICAL STATEMENT: PERONEAL TENDINITIS LEFT. COMPARISON: Radiographs, 06/28/2017 FINDINGS: No bone marrow edema visualized. The deltoid ligament complex is normal. The syndesmotic ligaments are intact. The anterior talofibular ligament, posterior talofibular ligament and calcaneofibular ligament appear normal. The flexor and extensor tendons appear intact. There is prominent fluid in the peroneal tendon sheaths. No peroneal tendon tear visualized. The Achilles tendon is intact. The plantar fascia appears within normal limits. There is mild subcutaneous edema. IMPRESSION: 1. Tenosynovitis of the peroneus longus and brevis tendons. 2. Mild subcutaneous edema. 3. No acute ligament abnormality Interpreted By: Rudy Shrestha MD Preliminary Report By: Rudy Shrestha MD Electronically Signed By: Rudy Shrestha MD Dictated Date: 01/28/2019 9:19:20 AM Prelim Date: 01/28/2019 9:19:20 AM Sign Date: 01/28/2019 9:22:26 AM Normal [facility] ([place]) Laboratory - Cytologyon Microscopic observation Cyto stain Nom (Cvx) SEE NOTE Normal [facility] Laboratory - Chemistry and C hemistry - challengeon 08-28-2018 Albumin [Mass/Vol] 4.2 g/dL Normal 3.6 - 5.1 g/dL [facility] Albumin/Globulin [Mass ratio] 1.8 {ratio} Normal 1.0 - 2.5 [facility] ALP [Catalytic activity/Vol] 50 U/L Normal 33 - 115 U/L [facility]. ALT [Catalytic activity/Vol] 11 U/L Normal 6 - 29 U/L [facility].; [facility], [facility]. AST [Catalytic activity/Vol] 27 U/L Normal 10 - 30 U/L [facility].; [facility], [facility]. Bilirubin [Mass/Vol] 0.8 mg/dL Normal 0.2 - 1 .2 mg/dL [facility], [facility].; [facility], [facility]. Calcium [Mass/Vol] 9.4 mg/dL Normal 8.6 - 10. 2 mg/dL [facility].; [facility], [facility]. Chloride [Moles/Vol] 108 mmol/L Normal 98 - 11 0 mmol/L [facility].; [facility], [facility]. Cholesterol [Mass/Vol] 186 mg/dL Normal [facility].; [facility], [facility]. Cholesterol in HDL [Mass/Vol] 50 mg/dL Abnormal [facility].; [facility], [facility]. Cholesterol in LDL [Mass/Vol] 118 mg/dL Abnormal 0 - 100 mg/dL [facility].; [facility], [facility]. Cholesterol non HDL [Mass/Vol] 136 mg/dL Abnormal [facility].; [facility], [facility]. Cholesterol.total/Ch olesterol in HDL [Mass ratio] 3.7 {ratio} Normal [facility].; [place] [facility]. CO2 [Moles/Vol] 21 mmol/L Normal 20 - 32 mmol/L [facility].; [facility], [facility]. Creatinine [Mass/Vol] 0.67 mg/dL Normal 0.50 - 1.10 mg/dL [facility], [facility].; [place] [facility], [facility]. GFR/1.73 sq M.predicted among blacks MDRD (S/P/Bld) [Vol rate/Area] 141 {ML/MIN/1.73M2} Normal [facility], [facility].; [facility], [facility]. GFR/1.73 sq M.predicted MDRD (S/P/Bld) [Vol rate/Area] 121 {ML/MIN/1.73M2} Normal [facility], [facility].; [place] [facility], [facility]. Globulin (S) [Mass/Vol] 2.3 g/dL Normal 1.9 - 3.7 g/dL [employer]. Glucose [Mass/Vol] 95 mg/dL Normal 65 - 99 mg/dL [employer].; [facility]. Potassium [Moles/Vol] 4.7 mmol/L Normal 3.5 - 5.3 mmol/L [employer].; [facility]. Protein [Mass/Vol] 6.5 g/dL Normal 6.1 - 8.1 g/dL [employer].; [facility]. Sodium [Moles/Vol] 138 mmol/L Normal 135 - 146 mmol/L [employer].; [facility]. Triglyceride [Mass/Vol] 79 mg/dL Normal [employer].; [facility]. Urea nitrogen [Mass/Vol] 14 mg/dL Normal 7 - 25 mg/dL [employer].; [facility]. Urea nitrogen/Creatinine [Mass ratio] 21.5 mg/mg Normal 6 - 22 [facility]. LATEX (k82) IGEon 03-28-2018 LATEX (k82) IGE Normal [facility] Comment on above: Result Comment: _LAT EX(k82)IGE_LATEX (K82) IGEReported: 03/27/2018 20:30 Status=F TEST RESULT FLAG RANGE UNITS KU/L <0.10 <0.10 03/27/18.rfl.COMPLETE.AMRR .6218-2CONVENTIONAL CLASS 0 0 03/27/18.rfl.COMPLETE.AMRR .[id number] LEVEL OF ALLERGENIgE CLASS kU/L SPECIFIC IgE ANTIBODY--------- --------- 0 <0.10 Absent/Undetectable 0/1 0.10-0.34 Very Low Level 1 0.35-0.69 Low Level 2 0.70-3.49 Moderate Level 3 3.50-17.4 High Level 4 17.5-49.9 Very High Level 5 50-100 Very High Level 6 >100 Very High LevelThe clinical relevance of allergen results of0.10-0.34 kU/L are undetermined and intended forspecialist use.Allergens denoted with a include results usingone or more analyte specific reagents. In thosecases, the test was developed and its analyticalperformance characteristics have been determinedby [employer]. It has not been cleared orapproved by the U.S. Food and Drug Administration.The FDA has determined that such clearance orapproval is not necessary. This assay has beenvalidated pursuant to the CLIA regulations and isused for clinical purposes.Test Performed by [facility],[employer] [facility],[address] [place] [id number] Agarwal M.D., Ph.D., Director of [phone], CLIA [id number] Performed By: #### 2 [id number] ####[facility],[address] [place] [address] OPERATIVE PROCEDURESon 03-10 OPERATIVE PROCEDURES [facility] OPERATIVE REPORT NAME ACCOUNT SEX AGE ADMIT DISCHARGE PT MED. RECORD# NUMBER DATE DATE TYPE BRYNN ABBASI [id number] F 27 03/05/18 2 [id number] ROOM: [facility] DATE OF : 1990 DICTATING PHYSICIAN: Byron Carrillo DATE OF SURGERY: March 05, 2018, 4:14 p.m. SURGEON: Byron Carrillo MD STEEL UNLOADER: LARA Perkins ANESTHESIOLOGIST: ANESTHETIC: General endotracheal with 1% lidocaine and 0.5% Marcaine without epinephrine locally. PREOPERATIVE DIAGNOSIS: Biliary colic. POSTOPERATIVE DIAGNOSIS: Biliary colic. OPERATION PERFORMED: Laparoscopic cholecystectomy. COMPLICATIONS: None. ESTIMATED BLOOD LOSS: 7 mL. DRAINS: None. SPECIMEN: Gallbladder. DISPOSITION: The patient recovered in the PACU and then discharged home. Diet: Regular. Activity: The patient was instructed not to lift more than 20 pounds with equivalent of exertion for a period of 4 weeks; otherwise, activity as tolerated. Medications: The patient was given [place] as needed for pain, Colace as needed for constipation and instructed to resume all previous home medications. Work: The patient was given a 2 week absence from work. Follow up with Dr. Carrillo's clinic in 2 weeks. DESCRIPTION OF OPERATION: Following the initiation of general endotracheal anesthesia, the patient was sterilely prepped and draped in the usual sterile supine position. 1% lidocaine and 0.5% Marcaine without epinephrine were infused into the supraumbilical position. An 11 blade scalpel was then used to create a semi-circumferential supraumbilical incision. The incision was completed using Page 1 of 3 BRYNN ABBASI Operative Report electrocautery and hemostasis was achieved using electrocautery as well. Blunt dissecting was then used to dissect down to the level of the anterior abdominal fascia. The anterior abdominal fascia was then grasped with 2 Faisal clamps and the abdomen entered using Metzenbaum scissors. A finger was then inserted through the defect and the anterior abdominal wall inspected. There were no anterior abdominal wall defects and/or adhesions. A 12 mm Tobin trocar was then secured into position and the abdomen was insufflated with Co2 gas. A 5 mm flexible tip camera was inserted through the trocar and the abdomen inspected. There were no acute intraabdominal abnormalities. Under direct visualization, one 5 mm trocar was established in the subxiphoid position and two 5 mm trocars were established in the right subcostal position. Prior to establishment of these trocars, the areas were anesthetized with 1% lidocaine and 0.5% Marcaine without epinephrine locally. The patient was then placed in reverse Trendelenburg with left side down positioning. The omentum was withdrawn from over the top of the liver edge exposing the dome of the gallbladder. The dome of the gallbladder was grasped and retracted in a cranial manner. It was noted that the gallbladder was distended and the gallbladder wall was slightly thickened. Blunt dissection was then used to dissect free the cystic artery and cystic duct. Once a critical view of the structures had been obtained, they were clipped twice proximally, once distally, and transected with laparoscopic scissors. The gallbladder was then removed from the gallbladder fossa using electrocautery. During the removal of the gallbladder there was a small amount of bowel spillage. Once the gallbladder had been removed, it was placed within an EndoCatch bag. Hemostasis within the gallbladder fossa was obtained using electrocautery. A small amount of blood loss and bowel spillage was then aspirated and then the right upper quadrant and biliary fossa was irrigated and aspirated until the irrigant ran clear. Final inspection of the gallbladder fossa revealed adequate hemostasis. Evaluation of the clip placement on the cystic artery and cystic duct revealed adequate clip positioning. The patient was then returned to a neutral position. The abdomen was allowed to completely desufflate through all port sites. The subxiphoid and 2 right subcostal ports were then removed under direct visualization. The abdomen was allowed to completely desufflate through the supraumbilical port site. The supraumbilical port and the EndoCatch bag containing the gallbladder were then removed from the suprapubic position. The supraumbilical anterior abdominal fascia was then repaired using interrupted 0 Vicryl sutures, the dermis was repaired using interrupted 4-0 Vicryl sutures, and all skin incisions were repaired using 5-0 Monocryl. All instrument, needle, and sponge counts were correct x2. The wounds were appropriately dressed and bandaged. The patient was then awakened, extubated, and taken to the PACU in good and stable condition. Dictated By: Byron Carrillo MD 03/05/18 16:20 JOB #: [id number] Transcribed By: [email or web address] 03/05/18 16:34 Electronically signed by: E-SIGN DR. CARRILLO Page 2 of 3 BRYNN ABBASI Operative Report 03/10/18 13:04 Page 3 of 3 BRYNN ABBASI Operative Report Normal [facility] URINEon 03-05-2018 EXTERNAL QC DONE? YES Normal [facility] Comment on above: Performed By: #### 2 [id number] ####[facility],[address] [place] [address] INTERNAL QC PASS Normal [facility] Comment on above: Performed By: #### 2 [id number] ####[facility],[address] [place] [address] UR Negative Normal NEGATIVE [facility] Comment on above: Performed By: #### 2 [id number] ####[facility],[address] [place] [address] CBCon 02-25-2018 Basophils Auto #/vol (Bld) 0.00 x10EE3/UL Normal 0.00 - 0.10 [facility] [facility] Comment on above: Performed By: #### 2 [id number] ####[facility],[address] [place] [address] Basophils/100 WBC Auto (Bld) 0.6 % Normal 0.0 - 2.0 [facility] Comment on above: Performed By: #### 2 04891 ####[facility],[address] [place] [address] Blood morphology N/A Normal [facility] Comment on above: Result Comment: {CD] Performed By: #### 2 [id number] ####[facility],[address] [place] [address] CBC Normal [facility] Comment on above: Result Comment: CBC- COMPLETE BLOOD COUNT Performed By: #### 2 01256 ####[facility],[address] [place] [address] Eosinophils 0.10 x10EE3/UL Normal 0.00 - 0.50 [facility] Comment on above: Performed By: #### 2 13307 ####[facility],[address] [place] [address] Eosinophils/100 leukocytes 1.7 % Normal 0.0 - 7.0 [facility] Comment on above: Performed By: #### 2 82265 ####[facility],[address] [place], [place] [address] Erythrocyte distribution width Auto Ratio (RBC) 13.4 % Normal 12.0 - 15.6 [facility] Comment on above: Performed By: #### 2 66018 ####[facility],[address] [place] [address] Erythrocytes (RBC) 5.22 x 10EE6/UL Normal 4.10 - 5.30 [facility] Comment on above: Performed By: #### 2 64947 ####[facility],[address] [place] [address] Hematocrit (HCT) 43.9 % Normal 34.0 - 46.0 [facility] Comment on above: Performed By: #### 2 79671 ####[facility],[address] [place] [address] Hemoglobin mass conc (Bld) 14.9 g/dL Normal 12.0 - 16.0 [facility] Comment on above: Performed By: #### 2 77782 ####[facility],[address] [place] [address] Lymphocytes 2.10 x10EE3/UL Normal 0.80 - 2.80 [facility] Comment on above: Performed By: #### 2 94021 ####[facility],[address] [place] [address] Lymphocytes/100 leukocytes 30.6 % Normal 20.0 - 45.0 [facility] Comment on above: Performed By: #### 2 01874 ####[facility],[address] [place] [address] MANUAL DIFF N/A Normal [facility] Comment on above: Performed By: #### 2 19747 ####[facility],[address] [place] [address] MCH 29 pg Normal 27 - 33 [facility] Comment on above: Performed By: #### 2 60897 ####[facility],[address] [place] [address] MCHC mass conc (RBC) 34 X10 3 Normal 32 - 36 [facility] Comment on above: Performed By: #### 2 07773 ####[facility],[address] [place] [address] 45061 MCV 84 fL Normal 80 - 99 [facility] Comment on above: Performed By: #### 2 75933 ####[facility],[address] [place] [address] 97308 Monocytes 0.40 x10EE3/UL Normal 0.20 - 1.00 [facility] Comment on above: Performed By: #### 2 54989 ####[facility],[address] [place] [address] 78974 MONOS % 5.9 % Normal 0.0 - 10.0 [facility] Comment on above: Performed By: #### 2 84237 ####[address] [address] Neutrophils 4.20 x10EE3/UL Normal 1.50 - 7.10 [facility] Comment on above: Performed By: #### 2 18273 ####[facility],[address] [place] [address]38[address] Neutrophils/100 WBC Auto (Bld) 61.2 % Normal 46.0 - 76.0 [facility] Comment on above: Performed By: #### 2 84630 ####[facility],[address] [place] [address] Platelet mean volume (PMV) 8.4 fL Normal 6.6 - 10.5 [facility] Comment on above: Result Comment: AUTO MATED DIFFERENTIAL Performed By: #### 2 54568 ####[address] [address] Platelets 252 x10EE3/UL Normal 150 - 450 [facility] Comment on above: Performed By: #### 2 21211 ####[address] [address] WBC (Leukocytes) 6.9 x 10EE3/UL Normal 4.5 - 10.8 [facility] Comment on above: Performed By: #### 2 56405 ####[facility],[address] [place] [address] CMP with eGFRon 02-25-2018 Age 27 years Normal [facility] Comment on above: Performed By: #### 2 96702 ####[facility],[address] [place] [address] 31805 Albumin 4.2 g/dL Normal 3.4 - 4.8 [facility] Comment on above: Performed By: #### 2 60056 ####[facility],[address] [place], [place] [id number] Albumin/Globulin Ratio 1.6 {ratio} Normal 0.9 - 1.6 [facility] Comment on above: Performed By: #### 2 88467 ####[facility],[address] [place], [place] [id number] ALK PHOS 43 U/L Normal 38 - 126 [facility] Comment on above: Performed By: #### 2 71576 ####[facility],[address] [place] [address] 67059 ALT/SGPT 8 U/L Normal 8 - 35 [facility] Comment on above: Performed By: #### 2 52948 ####[facility],[address] [place] [address]9823 Anion gap 4 mmol/L Low 10 - 20 [facility] Comment on above: Performed By: #### 2 01886 ####[facility],[address] [place] [address] 28886 AST/SGOT 19 U/L Normal 13 - 39 [facility] Comment on above: Performed By: #### 2 72701 ####[facility],[address] [place] [address]16 B/C RATIO 11 ratio Normal 0 - 30 [facility] Comment on above: Performed By: #### 2 29639 ####[facility],[address] [place] [address] 29986 Bilirubin (total) 0.7 mg/dL Normal 0.0 - 1.5 [facility] Comment on above: Performed By: #### 2 22913 ####[facility],[address] [place] [address] 50120 Calcium 9.4 mg/dL Normal 8.6 - 10.2 [facility] Comment on above: Performed By: #### 2 36325 ####[facility],[address] [place] [address] 83660 Chloride 109 mmol/L High 98 - 107 [facility] Comment on above: Performed By: #### 2 35045 ####[facility],[address] [place] [address] 78906 CO2 25.0 mmol/L Normal 21.0 - 31.0 [facility] Comment on above: Performed By: #### 2 45530 ####[facility],[address] [place] [address] 31340 Creatinine 0.7 mg/dL Normal 0.6 - 1.2 [facility] Comment on above: Performed By: #### 2 27466 ####[facility],[address] [place] [address]6623 eGFR (non-black) mL/min/{1.73_m2} Normal 60 - 999 [facility] Comment on above: Performed By: #### 2 04478 ####[facility],[address] [place] [address] 7[address] Result Comment: ACCO RDING TO THE NATIONAL KIDNEY DISEASE EDUCATION PROGRAM(NKDE), A NORMAL eGFRIS A VALUE GREATER THAN OR EQUAL TO 60 ML/MIN/1.73 SQ METERS.CHRONIC KIDNEY DISEASE: <60mL/MIN/1.73 SQ METERSKIDNEY FAILURE: <15mL/MIN/1.73 SQ METERSTHIS TEST SHOULD ONLY BE USED FOR PATIENTS 18 YEARS OF AGE AND OLDER. eGFR (non-black) Normal [facility] Comment on above: Result Comment: COMP REHENSIVE METABOLIC PANEL Performed By: #### 2 30362 ####[facility],[address] [place] [address] 33870 Globulin 2.7 g/dL Normal 1.5 - 3.8 [facility] Comment on above: Performed By: #### 2 63344 ####[facility],[address] [place] [address] Glucose mass conc 96 mg/dL Normal 74 - 106 [facility] Comment on above: Performed By: #### 2 29481 ####[facility],[address] [place] [address] Potassium molar conc 3.7 mmol/L Normal 3.5 - 5.1 [facility] Comment on above: Performed By: #### 2 59759 ####[facility],[address] [place] [address] Protein 6.9 g/dL Normal 6.4 - 8.3 [facility] Comment on above: Performed By: #### 2 13551 ####[facility],[address] [place] [address] Sodium 134 mmol/L Low 136 - 145 [facility] Comment on above: Performed By: #### 2 00633 ####[facility],[address] [place], [place] [address] Urea nitrogen 8 mg/dL Normal 6 - 20 [facility] Comment on above: Performed By: #### 2 18163 ####[facility],[address] [place] [address]1941 LIPASEon 02-25-2018 Lipase 16.0 U/L Low 18.0 - 51.0 [facility] Comment on above: Performed By: #### 2 86512 ####[facility],[address] [place], [place] [id number] US RUQ (GB/PANCREAS)on 02-19 US RUQ (GB/PANCREAS) [place] [address] [address] Patient: BRYNN ABBASI Phone#: : 1990 Age: 27 Gender: F Pt. Type: Out Account: [id number] Location: Ordering: AXEL FRANK Exam Date: 02/19/2018/7:09 Family Phys: SAIMA FERRARO Charge Code: [id number] Physician: Garfield Order #: [id number] DLP Dose#: PROCEDURE: RUQ (GB) ULTRASOUND COMPARISON: None. INDICATIONS: Right Upper Quadrant Pain FINDINGS: LIVER: Normal. Normal size and echotexture. No significant masses. BILIARY: There is sludge layering in the gallbladder. Normal appearing gallbladder and biliary tree. Common bile duct diameter 6 mm. The gallbladder wall measures 0.2 cm. PANCREAS: Visualized portion the pancreas is unremarkable. RIGHT KIDNEY: Normal renal parenchymal echogenicity. No hydronephrosis. OTHER: Negative. CONCLUSION: 1. Gallbladder sludge. 2. Common bile duct measures at the upper limits of normal. DICTATED BY: DIONICIO CEE MD ON 02/19/2018 AT 11:43 APPROVED BY: DIONICIO CEE MD ON 02/19/2018 AT 11:43 Normal [facility] C3, COMPLEMENT [QUEST]on C3, COMPLEMENT [QUEST] Normal [facility] Comment on above: Result Comment: _C3, COMPLEMENT_C3, COMPLEMENTReported: 10/16/2017 13:01 Status=F TEST RESULT FLAG RANGE UNITS C3, COMPLEMENT 170 90-180 mg/dL 10/16/17.1313.Cindy.AMRR .[id number] Performed by [facility],[address] [place] [address] 750[address]Qnwbgqlmelony Agarwal M.D., Ph.D., Director of [phone], [facility] [id number] Performed By: #### 2 07946 ####[place] [address] HEPATIC FUNCTION PANELon Albumin 4.3 g/dL Normal 3.4 - 4.8 g/dL [facility].; [facility]. Comment on above: Performed By: #### 2 58910 ####[address] [address] ALK PHOS 49 U/L Normal 38 - 126 [facility] Comment on above: Performed By: #### 2 72535 ####[address] [address] ALT/SGPT 12 U/L Normal 8 - 35 [facility] Comment on above: Performed By: #### 2 17160 ####[address] [address] AST/SGOT 23 U/L Normal 13 - 39 [facility] Comment on above: Performed By: #### 2 13694 ####[address] [address] Bilirubin (direct) 0.1 mg/dL Normal 0.0 - 0.1 [facility] Comment on above: Performed By: #### 2 55188 ####[address] [address] Bilirubin (total) 0.4 mg/dL Normal 0.0 - 1.5 mg/dL [place] [employer] [facility]. Comment on above: Performed By: #### 2 43380 ####[place] [address] HEPATIC FUNCTION PANEL Normal [facility] Comment on above: Result Comment: HEPA TIC FUNCTION PROFILE Performed By: #### 2 02619 ####[place] [address] Protein 6.6 g/dL Normal 6.4 - 8.3 g/dL [place] [employer] Comment on above: Performed By: #### 2 00669 ####[place] [address] Laboratory - Chemistry and C hemistry - challengeon 10-14-2017 ALP [Catalytic activity/Vol] 49 U/L Normal 38 - 126 U/L [facility] [employer] ALT [Catalytic activity/Vol] 12 U/L Normal 8 - 35 U/L [place] [employer]. AST [Catalytic activity/Vol] 23 U/L Normal 13 - 39 U/L [place] [employer]. Bilirubin.conjugated [Mass/Vol] 0.1 mg/dL Normal 0.0 - 0.1 mg/dL [facility] [employer] Hepatic function 2000 panel HEPATIC FUNCTION PANEL Normal [facility]. Laboratory - Hematology and Cell countson 10-14-2017 Complement C3 [Mass/Vol] C3, COMPLEMENT [QUEST] Normal [facility] [employer]. Laboratory - Chemistry and C hemistry - challengeon 01-09-2017 Beta HCG ( test) Ql (U) Negative Normal [place] [employer] No Panel Informationon 01-09 INTERNAL QC PASS Normal [employer] Observation duration YES Normal [facility]; [facility] [employer] [facility] SER Negative Normal [facility]; [facility] No Panel Informationon 04-11 PANEL NAME THIN PREP (QU) PAP W ITH HPV REFLEX Normal [facility]; [facility] [employer] [facility] Laboratory - Blood bankon ABO group Nom (Bld) B Normal [facility]; [facility] [employer] [facility] Work Phone: Blood group antibody screen Ql Negative Normal [facility]; [facility] [employer] [facility] Work Phone: cell screen (Bld) [Interp] NORMAL Normal [facility]; [facility] [employer] [facility] Work Phone: Rh immune globulin screen (Bld) [Interp] BB GAMULIN WORKUP Normal [facility]; [facility] [employer] [facility] Work Phone: Rh Nom (Bld) Negative Normal [facility]; [place] [employer] [facility] Work Phone: Laboratory - Hematology and Cell countson 09-07-2014 Basophils (Bld) [#/Vol] 0.00 {3/UL} Normal 0.00 - 0.10 {3/UL} [facility]; [facility] [employer] [facility] Work Phone: Basophils/100 WBC (Bld) 0.3 % Normal 0.0 - 2.0 % [facility]; [facility] [employer] [facility] Work Phone: CBC W Auto Differential panel (Bld) CBC Normal [facility]; [facility] [employer] in 2014) [facility] Work Phone: Eosinophils (Bld) [#/Vol] 0.00 {3/UL} Normal 0.00 - 0.50 {3/UL} [facility] [employer] [facility] [facility]; [place] [employer]. Work Phone: Eosinophils/100 WBC (Bld) 0.1 % Normal 0.0 - 7.0 % [facility].; [facility] [employer] [facility] Work Phone: Erythrocyte distribution width (RBC) [Ratio] 13.8 % Normal 12.0 - 15.6 % [facility]; [facility] [employer] [facility] Work Phone: Hematocrit (Bld) [Volume fraction] 32.1 % Abnormal 34.0 - 46.0 % [facility]; [facility] [employer] [facility] Work Phone: Hemoglobin (Bld) [Mass/Vol] 10.9 g/dL Abnormal 12.0 - 16.0 g/dL [facility] [employer] [facility]; [facility] [employer] [facility] Work Phone: Lymphocytes (Bld) [#/Vol] 1.50 {3/UL} Normal 0.80 - 2.80 {3/UL} [facility] [employer] [facility]; [facility] [employer] [facility] Work Phone: Lymphocytes/100 WBC (Bld) 10.1 % Abnormal 20.0 - 45.0 % [facility] [employer] [facility]; [place] [employer] Work Phone: MCH (RBC) [Entitic mass] 28 pg Normal 27 - 33 pg [facility] [employer] [facility]; [place] [employer] Work Phone: MCHC (RBC) [Mass/Vol] 34 {X10_3} Normal 32 - 36 {X10_3} [facility] [employer] [facility]; [place] [facility] [employer] Work Phone: MCV (RBC) [Entitic vol] 84 fL Normal 80 - 99 fL [facility] [employer] [facility]; [place] [employer] Work Phone: Monocytes (Bld) [#/Vol] 0.80 {3/UL} Normal 0.20 - 1.00 {3/UL} [facility] [employer] [facility]; [place] [employer] Work Phone: Monocytes/100 WBC (Bld) 5.5 % Normal 0.0 - 10.0 % [facility] [employer] [facility]; [facility] [employer] [facility]. Work Phone: Morphology Teo (Bld) [Interp] N/A Normal [facility]; [facility] [employer] [facility]. Work Phone: Neutrophils (Bld) [#/Vol] 12.20 {3/UL} Abnormal 1.50 - 7.10 {3/UL} [facility]; [facility] [employer] [facility]. Work Phone: Neutrophils/100 WBC (Bld) 84.0 % Abnormal 46.0 - 76.0 % [facility]; [facility] [employer] [facility]. Work Phone: Platelet mean volume (Bld) [Entitic vol] 8.1 fL Normal 6.6 - 10.5 fL [facility]; [facility] [employer] [facility] Work Phone: Platelets (Bld) [#/Vol] 188 {3/UL} Normal 150 - 450 {3/UL} [facility]; [place] [employer]. Work Phone: RBC (Bld) [#/Vol] 3.84 {6/UL} Abnormal 4.10 - 5.3 0 {6/UL} [facility] [employer] [facility]; [facility] Work Phone: WBC (Bld) [#/Vol] 14.5 {3/UL} Abnormal 4.5 - 10.8 {3/UL} [facility]; [facility] [employer] [facility]. Work Phone: No Panel Informationon 09-07 # OF RHOGAM REQUIRED 1 Normal [facility] [employer]; [facility]. Work Phone: MANUAL DIFF N/A Normal [facility]; [facility] [employer] [facility]. Work Phone: Laboratory - Blood bankon ABO group Nom (Bld) B Normal [facility]; [facility] Work Phone: Blood group antibody screen Ql Negative Normal [facility]; [facility] [employer] [facility]. Work Phone: Blood type and Indirect antibody screen panel (Bld) Normal [facility]; [facility]. Work Phone: Rh Nom (Bld) Negative Normal [facility]; [facility] [employer] [facility]. Work Phone: Laboratory - Hematology and Cell countson 09-06-2014 Basophils (Bld) [#/Vol] 0.10 {3/UL} Normal 0.00 - 0.10 {3/UL} [facility]; [facility] [employer] [facility] Work Phone: Basophils/100 WBC (Bld) 0.9 % Normal 0.0 - 2.0 % [facility]; [facility] [employer] [facility]. Work Phone: CBC W Auto Differential panel (Bld) CBC Normal [facility]; [facility] [employer] [facility]. Work Phone: Eosinophils (Bld) [#/Vol] 0.10 {3/UL} Normal 0.00 - 0.50 {3/UL} [facility]; [facility] [employer] [facility]. Work Phone: Eosinophils/100 WBC (Bld) 0.7 % Normal 0.0 - 7.0 % [facility]; [facility] [employer] [facility]. Work Phone: Erythrocyte distribution width (RBC) [Ratio] 14.1 % Normal 12.0 - 15.6 % [facility]; [facility] [employer] [facility] Work Phone: Hematocrit (Bld) [Volume fraction] 35.3 % Normal 34.0 - 46.0 % [facility]; [facility] [employer] [facility] Work Phone: Hemoglobin (Bld) [Mass/Vol] 11.9 g/dL Abnormal 12.0 - 16.0 g/dL [facility]; [facility] [employer] [facility] Work Phone: Lymphocytes (Bld) [#/Vol] 2.10 {3/UL} Normal 0.80 - 2.80 {3/UL} [facility] [employer] [facility]; [facility] [employer] [facility]. Work Phone: Lymphocytes/100 WBC (Bld) 16.1 % Abnormal 20.0 - 45.0 % [facility] [employer] [facility]; [facility] [employer] [facility]. Work Phone: MCH (RBC) [Entitic mass] 28 pg Normal 27 - 33 pg [facility] [employer] [facility]; [place] [facility]. Work Phone: MCHC (RBC) [Mass/Vol] 34 {X10_3} Normal 32 - 36 {X10_3} [facility] [employer] [facility].; [place] [employer]. Work Phone: MCV (RBC) [Entitic vol] 83 fL Normal 80 - 99 fL [facility] [employer] [facility] [facility].; [place] [employer]. Work Phone: Monocytes (Bld) [#/Vol] 0.70 {3/UL} Normal 0.20 - 1.00 {3/UL} [facility] [employer] [facility].; [place] [facility]. Work Phone: Monocytes/100 WBC (Bld) 5.2 % Normal 0.0 - 10.0 % [facility] [employer] [facility]; [facility] [employer] [facility]. Work Phone: Morphology Teo (Bld) [Interp] N/A Normal [facility] [employer] [facility]; [place] [employer] [facility]. Work Phone: Neutrophils (Bld) [#/Vol] 10.30 {3/UL} Abnormal 1.50 - 7.10 {3/UL} [facility] [employer] [facility].; [place] [employer], [facility]. Work Phone: Neutrophils/100 WBC (Bld) 77.1 % Abnormal 46.0 - 76.0 % [facility] [employer] [facility]; [place] [employer]. Work Phone: Platelet mean volume (Bld) [Entitic vol] 8.1 fL Normal 6.6 - 10.5 fL [facility] [employer] [facility]; [place] [facility] Work Phone: Platelets (Bld) [#/Vol] 221 {3/UL} Normal 150 - 450 {3/UL} [facility] [employer] [facility] [facility].; [place] [employer]. Work Phone: RBC (Bld) [#/Vol] 4.24 {6/UL} Normal 4.10 - 5.3 0 {6/UL} [facility] [employer] [facility].; [place] [employer]. Work Phone: WBC (Bld) [#/Vol] 13.4 {3/UL} Abnormal 4.5 - 10.8 {3/UL} [facility] [employer] [facility]; [place] [employer]. Work Phone: No Panel Informationon 09-06 AMNISURE Positive Normal [facility] [employer] [facility]; [place] [employer] Work Phone: INTERNAL QC PASS Normal [facility] [employer] [facility]; [place] [employer]. Work Phone: MANUAL DIFF N/A Normal [facility] [employer] [facility]; [place] [employer] Work Phone: Observation duration YES Normal [facility]; [place] [employer] Work Phone: PANEL NAME AMNISURE Normal [facility] [employer]; [place] [employer] Work Phone: Laboratory - Microbiology an d Antimicrobial susceptibilityon 08-23-2014 S. agalactiae Org specific cx Ql (Vag fld) CULTURE VAGINAL GROUP B Normal [facility]; [place] [facility] Laboratory - Urinalysison Glucose Test strip (U) [Mass/Vol] Negative Normal [facility] [employer]; [employer] Protein Ql (U) Negative Normal [facility] [employer]; [place] [employer] [facility] - Urinalysison Glucose Test strip (U) [Mass/Vol] Negative Normal [employer].; [facility]. Protein Ql (U) Negative [facility] [employer].; [employer]. Laboratory - Urinalysison Glucose Test strip (U) [Mass/Vol] Negative Normal [employer].; [facility]. Protein Ql (U) Negative [facility] [employer].; [employer]. Laboratory - Chemistry and C hemistry - challengeon 06-21-2014 Glucose 1 Hr post 50 g glucose PO [Mass/Vol] 113 mg/dL Normal [employer].; [employer]. Laboratory - Hematology and Cell countson 06-21-2014 Hemoglobin (Bld) [Mass/Vol] 12.4 g/dL Normal 11.7 - 15.5 g/dL [employer].; [facility]. Laboratory - Urinalysison Glucose Test strip (U) [Mass/Vol] Negative Normal [employer].; [facility]. Protein Ql (U) Negative [facility] [employer].; [employer]. Laboratory - Urinalysison Glucose Test strip (U) [Mass/Vol] Negative Normal [employer].; [employer]. Protein Ql (U) Negative [facility] [employer].; [employer], [employer]. Laboratory - Urinalysison Glucose Test strip (U) [Mass/Vol] Negative Normal [employer].; [employer], [employer]. Protein Ql (U) Negative [facility] [employer].; [employer], [employer]. Laboratory - Coagulationon 0 03-22-2014 Coagulation factor V activity actual/normal Coag (PPP) [Relative time] FACTOR V ACTIVITY, CLOTTING Normal [employer].; [facility]. Laboratory - Urinalysison Glucose Test strip (U) [Mass/Vol] Negative Normal [facility].; [facility]. Protein Ql (U) Negative Normal [facility] [employer] [facility].; [employer]. Laboratory - Blood bankon ABO group Nom (Bld) B Normal [facility] [employer].; [facility] [employer] Blood group antibody screen Ql Negative Normal [facility] [employer] [facility].; [employer]. Laboratory - Chemistry and C hemistry - challengeon 02-19-2014 Bilirubin Ql (U) Negative [facility] [employer] Ketones Ql (U) Negative Normal [facility] [employer] [facility].; [employer]. pH (U) 6.0 [pH] Normal [place] [facility] [employer] [facility] [facility] [employer] Specific gravity (U) [Rel density] 1.015 Normal [facility] [employer] [facility].; [employer]. TSH Qn 0.87 m[IU]/L Normal 0.40 - 4.50 {mIU/L} [place] [facility] [employer].; [employer] Urobilinogen Qn (U) 0.2 mg/dL Normal [facility] [employer] [facility].; [employer]. Laboratory - Hematology and Cell countson 02-19-2014 Basophils (Bld) [#/Vol] 50 {Cells}/uL Normal 0 - 200 {Cells}/uL [facility] [employer] (ac[employer] by [employer] in 2014) [facility].; [employer]. Basophils/100 WBC (Bld) 0 % Normal [place] [employer] [facility].; [employer]. Eosinophils (Bld) [#/Vol] 90 {Cells}/uL Normal 15 - 500 {Cells}/uL [place] [employer] [facility].; [employer]. Eosinophils/100 WBC (Bld) 1 % Normal [place] [employer] [facility].; [employer]. Erythrocyte distribution width (RBC) [Ratio] 13.4 % Normal 11.0 - 15.0 % [employer].; [employer]. Hematocrit (Bld) [Volume fraction] 37.8 % Normal 35.0 - 45.0 % [place] [employer].; [employer]. Hemoglobin (Bld) [Mass/Vol] 13.1 g/dL Normal 11.7 - 15.5 g/dL [facility] [employer] [facility].; [place] [facility], [facility]. Hemoglobin Ql (U) Negative Normal [facility] [employer] [facility].; [facility], [facility] Lymphocytes (Bld) [#/Vol] 2080 {Cells}/uL Normal 850 - 3900 {Cells}/uL [facility], [facility].; [facility], [facility] Lymphocytes/100 WBC (Bld) 19 % Normal [facility] [employer] [facility].; [facility], [facility]. MCH (RBC) [Entitic mass] 29.8 pg Normal 27.0 - 33.0 PG [facility] [employer] [facility].; [facility], [facility]. MCHC (RBC) [Mass/Vol] 34.6 g/dL Normal 32.0 - 36.0 g/dL [facility] [employer] [facility].; [place] [facility], [facility]. MCV (RBC) [Entitic vol] 86.1 fL Normal 80.0 - 100.0 fL [facility] [employer] [facility].; [facility], [facility]. Monocytes (Bld) [#/Vol] 590 {Cells}/uL Normal 200 - 950 {Cells}/uL [facility] [employer] [facility].; [place] [employer], [facility]. Monocytes/100 WBC (Bld) 5 % Normal [facility] [employer] [facility].; [facility], [facility]. Neutrophils (Bld) [#/Vol] 8030 {Cells}/uL Abnormal 1500 - 7800 {Cells}/uL [facility], [facility].; [place] [employer], [facility]. Neutrophils/100 WBC (Bld) 74 % Normal [facility] [employer] [facility].; [place] [facility], [facility]. Platelets (Bld) [#/Vol] 254 10*3/uL Normal 140 - 400 10*3/uL [place] [facility], [facility].; [place] [employer], [facility]. RBC (Bld) [#/Vol] 4.39 10*6/uL Normal 3.80 - 5.1 0 10*6/uL [place] [facility], [facility].; [place] [employer] WBC (Bld) [#/Vol] 10.8 10*3/uL Normal 3.8 - 10.8 10*3/uL [facility] [employer].; [employer]. Laboratory - Microbiology an d Antimicrobial susceptibilityon 02-19-2014 C. trachomatis rRNA JUAN+probe Ql (Unsp spec) Not detected Normal [facility] [employer].; [employer] HBV surface Ag IA Ql Non-Reactive Normal [facility].; [place] [facility], [employer]. N. gonorrhoeae rRNA JUAN+probe Ql (Unsp spec) Not detected Normal [facility] [employer] [facility].; [employer]. Reagin Ab RPR Ql (S) Non-Reactive Normal [facility] [employer] [facility].; [place] [employer] Rubella virus IgG Qn (S) 2.60 [IU]/mL Normal [place] [facility].; [employer]. Laboratory - Specimen inform ationon 02-19-2014 Appearance (U) clear [facility] [employer].; [employer] Color (U) yellow Normal [place] [employer].; [employer]. Laboratory - Urinalysison Glucose Test strip (U) [Mass/Vol] Negative Normal [place] [employer].; [employer]. Leukocyte esterase Test strip Ql (U) Negative Normal [place] [employer].; [employer]. Nitrite Ql (U) Negative Normal [facility] [employer], [employer]. Protein Ql (U) Negative Normal [facility] [employer].; [employer]. No Panel Informationon 02-19 RH TYPE Negative Normal [place] [employer].; [employer]. Laboratory - Chemistry and C hemistry - challengeon 02-01-2014 Beta HCG ( test) Ql (U) Positive Abnormal [place] [employer].; [employer]. Vital Signs Date Time Vital Sign Value Performing Clinician Facility 12-27-2022 14:56-0400 Body height 165.1 cm [facility] Work Phone: [place] [employer].; [employer]. 12-27-2022 14:56-0400 Body mass index (BMI) [Ratio] 43.93 kg/m2 Martha America [employer]PUTER SYSTEMS INFORMATION DIRECTOR Work Phone: [place] [employer]; [employer] 12-27-2022 14:56-0400 Body surface area Derived from formula 2.23 m2 Martha Cross LPN Work Phone: [employer].; [employer]. 12-27-2022 14:56-0400 Body weight 119.75 kg Martha Cross LPN Work Phone: [employer].; [employer]. 12-27-2022 14:56-0400 Diastolic blood pressure 88 mm[Hg] Martha Cross LPN Work Phone: [employer]; [employer]. Comment on above: Patient Position: Si tting; Cuff Location: Left Arm; Cuff Size: Standard 12-27-2022 14:56-0400 Heart rate 96 /min Martha Cross LPN Work Phone: [employer]; [facility]. Comment on above: Pattern: Regular 12-27-2022 14:56-0400 Systolic blood pressure 135 mm[Hg] Martha Cross LPN Work Phone: [employer]; [facility]. Comment on above: Patient Position: Si tting; Cuff Location: Left Arm; Cuff Size: Standard 10-08-2022 14:18-0500 Body height 165.1 cm Martha Cross LPN Work Phone: [employer]; [employer]. 10-08-2022 14:18-0500 Body mass index (BMI) [Ratio] 44.93 kg/m2 Martha Cross COMPUTER SYSTEMS INFORMATION DIRECTOR Work Phone: [employer]; [employer]. 10-08-2022 14:18-0500 Body surface area Derived from formula 2.25 m2 Martha Charlesy COMPUTER SYSTEMS INFORMATION DIRECTOR Work Phone: [employer]; [employer]. 10-08-2022 14:18-0500 Body weight 122.47 kg Martha America COMPUTER SYSTEMS INFORMATION DIRECTOR Work Phone: [facility].; [facility]. 10-08-2022 14:18-0500 Diastolic blood pressure 87 mm[Hg] Martha America COMPUTER SYSTEMS INFORMATION DIRECTOR Work Phone: [facility].; [facility]. Comment on above: Patient Position: Si tting; Cuff Location: Left Arm; Cuff Size: Large 10-08-2022 14:18-0500 Systolic blood pressure 125 mm[Hg] Martha America COMPUTER SYSTEMS INFORMATION DIRECTOR Work Phone: [facility].; [facility]. Comment on above: Patient Position: Si tting; Cuff Location: Left Arm; Cuff Size: Large 02-18-2019 10:10-0400 Body height 165.1 cm Martha America COMPUTER SYSTEMS INFORMATION DIRECTOR Work Phone: [facility].; [facility]. 02-18-2019 10:10-0400 Body mass index (BMI) [Ratio] 43.77 kg/m2 Martha America COMPUTER SYSTEMS INFORMATION DIRECTOR Work Phone: [facility].; [facility]. 02-18-2019 10:10-0400 Body surface area Derived from formula 2.22 m2 Martha America COMPUTER SYSTEMS INFORMATION DIRECTOR Work Phone: [employer]; [facility]. 02-18-2019 10:10-0400 Body weight 119.3 kg Martha America COMPUTER SYSTEMS INFORMATION DIRECTOR Work Phone: [facility].; [facility]. 02-18-2019 10:10-0400 Diastolic blood pressure 85 mm[Hg] Martha America COMPUTER SYSTEMS INFORMATION DIRECTOR Work Phone: [facility].; [facility]. Comment on above: Patient Position: Si tting; Cuff Location: Left Arm; Cuff Size: Standard 02-18-2019 10:10-0400 Heart rate 101 /min Martha America COMPUTER SYSTEMS INFORMATION DIRECTOR Work Phone: [employer]; [facility]. Comment on above: Pattern: Regular 02-18-2019 10:10-0400 Systolic blood pressure 144 mm[Hg] Martha Charlesy COMPUTER SYSTEMS INFORMATION DIRECTOR Work Phone: [employer]; [facility]. Comment on above: Patient Position: Si tting; Cuff Location: Left Arm; Cuff Size: Standard 09-18-2018 09:35-0500 Body height 165.1 cm Martha Cross COMPUTER SYSTEMS INFORMATION DIRECTOR Work Phone: [employer]; [facility]. 09-18-2018 09:35-0500 Body mass index (BMI) [Ratio] 43.77 kg/m2 Martha Cross COMPUTER SYSTEMS INFORMATION DIRECTOR Work Phone: [employer]; [facility]. 09-18-2018 09:35-0500 Body surface area Derived from formula 2.22 m2 Martha Cross LPN Work Phone: [employer]; [facility]. 09-18-2018 09:35-0500 Body weight 119.3 kg Martha Cross LPN Work Phone: [employer]; [facility]. 09-18-2018 09:35-0500 Diastolic blood pressure 76 mm[Hg] Martha Charlesy COMPUTER SYSTEMS INFORMATION DIRECTOR Work Phone: [employer]; [facility]. Comment on above: Patient Position: Si tting; Cuff Location: Left Arm; Cuff Size: Large 09-18-2018 09:35-0500 Heart rate 89 /min Martha Charlesy COMPUTER SYSTEMS INFORMATION DIRECTOR Work Phone: [employer]; [facility]. Comment on above: Pattern: Regular 09-18-2018 09:35-0500 Systolic blood pressure 119 mm[Hg] Martha America COMPUTER SYSTEMS INFORMATION DIRECTOR Work Phone: [employer]; [facility]. Comment on above: Patient Position: Si tting; Cuff Location: Left Arm; Cuff Size: Large 02-17-2018 09:57-0400 Body height 165.1 cm Neadelae Arsenio Arevalo COMPUTER SYSTEMS INFORMATION DIRECTOR [employer] [facility]. 02-17-2018 09:57-0400 Body mass index (BMI) [Ratio] 44.6 kg/m2 Neilee L Vess COMPUTER SYSTEMS INFORMATION DIRECTOR [employer] [facility]. 02-17-2018 09:57-0400 Body surface area Derived from formula 2.24 m2 [email or web address] L Vess COMPUTER SYSTEMS INFORMATION DIRECTOR [employer].; [facility]. 02-17-2018 09:57-0400 Body temperature 98.1 [degF] [email or web address] L Vess [facility].; [facility]. Comment on above: Method: Tympanic 02-17-2018 09:57-0400 Body weight 121.56 kg [email or web address] L Irina COMPUTER SYSTEMS INFORMATION DIRECTOR [employer].; [facility]. 02-17-2018 09:57-0400 Diastolic blood pressure 73 mm[Hg] Neilee L Irina COMPUTER SYSTEMS INFORMATION DIRECTOR [employer].; [facility]. Comment on above: Patient Position: Si tting; Cuff Location: Left Arm; Cuff Size: Standard 02-17-2018 09:57-0400 Heart rate 79 /min [email or web address] L Irina COMPUTER SYSTEMS INFORMATION DIRECTOR [employer].; [facility]. Comment on above: Pattern: Regular 02-17-2018 09:57-0400 Systolic blood pressure 108 mm[Hg] Neilee L Vess COMPUTER SYSTEMS INFORMATION DIRECTOR [employer] [facility]. Comment on above: Patient Position: Si tting; Cuff Location: Left Arm; Cuff Size: Standard 10-14-2017 13:39-0500 Body height 165.1 cm [facility] Work Phone: [employer].; [facility]. 10-14-2017 13:39-0500 Body mass index (BMI) [Ratio] 44.76 kg/m2 [facility] Work Phone: [employer].; [facility]. 10-14-2017 13:39-0500 Body surface area Derived from formula 2.24 m2 Martha Cross LPN Work Phone: [employer].; [employer] 10-14-2017 13:39-0500 Body weight 122.02 kg Martha Cross COMPUTER SYSTEMS INFORMATION DIRECTOR Work Phone: [employer].; [employer] 10-14-2017 13:39-0500 Diastolic blood pressure 86 mm[Hg] Martha Cross COMPUTER SYSTEMS INFORMATION DIRECTOR Work Phone: [employer].; [facility]. Comment on above: Patient Position: Si tting; Cuff Location: Left Arm; Cuff Size: Large 10-14-2017 13:39-0500 Systolic blood pressure 140 mm[Hg] Martha Cross COMPUTER SYSTEMS INFORMATION DIRECTOR Work Phone: [employer].; [facility]. Comment on above: Patient Position: Si tting; Cuff Location: Left Arm; Cuff Size: Large 09-10-2017 13:54-0500 Body height 165.1 cm Balbina Pal [facility] [employer] 09-10-2017 13:54-0500 Body mass index (BMI) [Ratio] 45.43 kg/m2 Balbina Pal [facility] [employer] 09-10-2017 13:54-0500 Body surface area Derived from formula 2.26 m2 Balbina Pal [facility]. 09-10-2017 13:54-0500 Body weight 123.83 kg Kimber Stuckey [facility]. 09-10-2017 13:54-0500 Diastolic blood pressure 77 mm[Hg] Balbina Pal [facility]. Comment on above: Patient Position: Si tting; Cuff Location: Left Arm; Cuff Size: Large 09-10-2017 13:54-0500 Heart rate 108 /min Balbina Pal [facility]. Comment on above: Pattern: Regular 09-10-2017 13:54-0500 Systolic blood pressure 127 mm[Hg] Balbina Pal [facility] [employer]. Comment on above: Patient Position: Si tting; Cuff Location: Left Arm; Cuff Size: Large 06-24-2017 11:28-0400 Body height 165.1 cm Neadelae Arsenio Vess COMPUTER SYSTEMS INFORMATION DIRECTOR [employer] [facility]. 06-24-2017 11:28-0400 Body mass index (BMI) [Ratio] 42.27 kg/m2 Neilee L Vess [facility] [employer] 06-24-2017 11:28-0400 Body surface area Derived from formula 2.19 m2 [email or web address] L Vess [facility] [employer] 06-24-2017 11:28-0400 Body temperature 98.2 [degF] Neilee L Vess COMPUTER SYSTEMS INFORMATION DIRECTOR [employer], [employer]. Comment on above: Method: Tympanic 06-24-2017 11:28-0400 Body weight 115.21 kg [email or web address] L Vess COMPUTER SYSTEMS INFORMATION DIRECTOR [employer] 06-24-2017 11:28-0400 Diastolic blood pressure 84 mm[Hg] Neilee L Vess COMPUTER SYSTEMS INFORMATION DIRECTOR [employer]. Comment on above: Patient Position: Si tting; Cuff Location: Right Arm; Cuff Size: Standard 06-24-2017 11:28-0400 Heart rate 97 /min Neilee L Vess COMPUTER SYSTEMS INFORMATION DIRECTOR [employer] [facility]. Comment on above: Pattern: Regular 06-24-2017 11:28-0400 Systolic blood pressure 123 mm[Hg] Neilee L Vess COMPUTER SYSTEMS INFORMATION DIRECTOR [employer] [facility]. Comment on above: Patient Position: Si tting; Cuff Location: Right Arm; Cuff Size: Standard 02-15-2017 15:07-0400 Body height 165.1 cm Martha Cross LPN Work Phone: [employer]; [facility]. 02-15-2017 15:07-0400 Body mass index (BMI) [Ratio] 41.93 kg/m2 Martha Cross LPN Work Phone: [facility].; [facility]. 02-15-2017 15:07-0400 Body surface area Derived from formula 2.18 m2 Martha Cross LPN Work Phone: [employer]; [facility]. 02-15-2017 15:07-0400 Body weight 114.31 kg Martha Cross LPN Work Phone: [employer]; [facility]. 02-15-2017 15:07-0400 Diastolic blood pressure 78 mm[Hg] Martha Cross LPN Work Phone: [employer]; [facility]. Comment on above: Patient Position: Si tting; Cuff Location: Left Arm; Cuff Size: Standard 02-15-2017 15:07-0400 Heart rate 100 /min Martha Cross LPN Work Phone: [employer]; [facility]. Comment on above: Pattern: Regular 02-15-2017 15:07-0400 Systolic blood pressure 136 mm[Hg] Martha Cross LPN Work Phone: [employer]; [facility]. Comment on above: Patient Position: Si tting; Cuff Location: Left Arm; Cuff Size: Standard 04-11-2016 15:33-0400 Body height 165.1 cm Martha Cross LPN Work Phone: [employer]; [facility]. 04-11-2016 15:33-0400 Body mass index (BMI) [Ratio] 37.77 kg/m2 Martha America COMPUTER SYSTEMS INFORMATION DIRECTOR Work Phone: [employer]; [facility]. 04-11-2016 15:33-0400 Body surface area Derived from formula 2.09 m2 Martha Peter [employer] Work Phone: [employer]; [facility]. 04-11-2016 15:33-0400 Body weight 102.97 kg Martha America LPN Work Phone: [facility].; [facility]. 04-11-2016 15:33-0400 Diastolic blood pressure 71 mm[Hg] Martha Cross LPN Work Phone: [employer]; [facility]. Comment on above: Patient Position: Si tting; Cuff Location: Left Arm; Cuff Size: Large 04-11-2016 15:33-0400 Heart rate 90 /min Martha America COMPUTER SYSTEMS INFORMATION DIRECTOR Work Phone: [employer]; [facility]. Comment on above: Pattern: Regular 04-11-2016 15:33-0400 Systolic blood pressure 118 mm[Hg] Martha Cross LPN Work Phone: [employer]; [facility]. Comment on above: Patient Position: Si tting; Cuff Location: Left Arm; Cuff Size: Large 01-02-2016 14:48-0400 Body height 165.1 cm Martha America LPN Work Phone: [employer]; [facility]. 01-02-2016 14:48-0400 Body mass index (BMI) [Ratio] 39.27 kg/m2 Martha America LPN Work Phone: [employer]; [facility]. 01-02-2016 14:48-0400 Body surface area Derived from formula 2.12 m2 Martha Pulsar Work Phone: [employer]; [facility]. 01-02-2016 14:48-0400 Body temperature 99.3 [degF] Martha America COMPUTER SYSTEMS INFORMATION DIRECTOR Work Phone: [employer]; [facility]. Comment on above: Method: Tympanic 01-02-2016 14:48-0400 Body weight 107.05 kg Martha Cross COMPUTER SYSTEMS INFORMATION DIRECTOR Work Phone: [employer].; [facility]. 01-02-2016 14:48-0400 Diastolic blood pressure 103 mm[Hg] Martha Charlesy COMPUTER SYSTEMS INFORMATION DIRECTOR Work Phone: [employer].; [facility]. Comment on above: Patient Position: Si tting; Cuff Location: Left Arm; Cuff Size: Large 01-02-2016 14:48-0400 Heart rate 88 /min Martha Cross COMPUTER SYSTEMS INFORMATION DIRECTOR Work Phone: [employer].; [facility]. Comment on above: Pattern: Regular 01-02-2016 14:48-0400 Systolic blood pressure 139 mm[Hg] Martha Cross COMPUTER SYSTEMS INFORMATION DIRECTOR Work Phone: [employer].; [facility]. Comment on above: Patient Position: Si tting; Cuff Location: Left Arm; Cuff Size: Large 05-31-2015 10:52-0400 Body temperature 98.9 [degF] Amy Polanco RN [employer].; [facility]. Comment on above: Method: Tympanic 05-31-2015 10:52-0400 Body weight 113.85 kg Amy Polanco RN [employer].; [facility]. 05-31-2015 10:52-0400 Diastolic blood pressure 85 mm[Hg] Amy Polanco RN [employer].; [facility]. Comment on above: Patient Position: Si tting; Cuff Location: Left Arm; Cuff Size: Standard 05-31-2015 10:52-0400 Heart rate 102 /min Amy Polanco RN [employer].; [facility]. Comment on above: Pattern: Regular 05-31-2015 10:52-0400 Systolic blood pressure 131 mm[Hg] Amy Polanco RN [employer].; [facility]. Comment on above: Patient Position: Si tting; Cuff Location: Left Arm; Cuff Size: Standard 10-27-2014 15:22-0500 Body height 165.1 cm Martha Cross COMPUTER SYSTEMS INFORMATION DIRECTOR Work Phone: [employer]; [facility]. 10-27-2014 15:22-0500 Body mass index (BMI) [Ratio] 38.77 kg/m2 Martha America COMPUTER SYSTEMS INFORMATION DIRECTOR Work Phone: [employer]; [facility]. 10-27-2014 15:22-0500 Body surface area Derived from formula 2.11 m2 Martha America COMPUTER SYSTEMS INFORMATION DIRECTOR Work Phone: [employer]; [facility]. 10-27-2014 15:22-0500 Body weight 105.69 kg Martha Charlesy COMPUTER SYSTEMS INFORMATION DIRECTOR Work Phone: [employer]; [facility]. 10-27-2014 15:22-0500 Diastolic blood pressure 74 mm[Hg] Martha Charlesy COMPUTER SYSTEMS INFORMATION DIRECTOR Work Phone: [employer]; [facility]. Comment on above: Patient Position: Si tting; Cuff Location: Left Arm; Cuff Size: Large 10-27-2014 15:22-0500 Heart rate 91 /min Martha Charlesy COMPUTER SYSTEMS INFORMATION DIRECTOR Work Phone: [employer]; [facility]. Comment on above: Pattern: Regular 10-27-2014 15:22-0500 Systolic blood pressure 123 mm[Hg] Martha America COMPUTER SYSTEMS INFORMATION DIRECTOR Work Phone: [employer]; [facility]. Comment on above: Patient Position: Si tting; Cuff Location: Left Arm; Cuff Size: Large 09-23-2014 11:45-0500 Body weight 105.24 kg Neilee L Vess COMPUTER SYSTEMS INFORMATION DIRECTOR [employer].; [facility]. 09-23-2014 11:45-0500 Diastolic blood pressure 85 mm[Hg] Neilee L Vess COMPUTER SYSTEMS INFORMATION DIRECTOR [employer]. Comment on above: Patient Position: Si tting; Cuff Location: Left Arm; Cuff Size: Standard 09-23-2014 11:45-0500 Heart rate 94 /min Neilee L Vess COMPUTER SYSTEMS INFORMATION DIRECTOR [place] [employer].; [facility]. Comment on above: Pattern: Regular 09-23-2014 11:45-0500 Systolic blood pressure 110 mm[Hg] Neilee L Vess COMPUTER SYSTEMS INFORMATION DIRECTOR [employer].; [employer]. Comment on above: Patient Position: Si tting; Cuff Location: Left Arm; Cuff Size: Standard 08-23-2014 13:12-0500 Body weight 113.85 kg Martha America COMPUTER SYSTEMS INFORMATION DIRECTOR Work Phone: [employer].; [facility]. 08-23-2014 13:12-0500 Diastolic blood pressure 89 mm[Hg] Martha [place] COMPUTER SYSTEMS INFORMATION DIRECTOR Work Phone: [employer]. Comment on above: Patient Position: Si tting; Cuff Location: Left Arm; Cuff Size: Standard 08-23-2014 13:12-0500 Heart rate 113 /min Martha America COMPUTER SYSTEMS INFORMATION DIRECTOR Work Phone: [employer]. Comment on above: Pattern: Regular 08-23-2014 13:12-0500 Systolic blood pressure 137 mm[Hg] Martha [place] COMPUTER SYSTEMS INFORMATION DIRECTOR Work Phone: [employer]. Comment on above: Patient Position: Si tting; Cuff Location: Left Arm; Cuff Size: Standard 08-09-2014 09:19-0500 Body weight 111.13 kg Martha [place] COMPUTER SYSTEMS INFORMATION DIRECTOR Work Phone: [employer] 08-09-2014 09:19-0500 Diastolic blood pressure 78 mm[Hg] Martha America COMPUTER SYSTEMS INFORMATION DIRECTOR Work Phone: [employer]; [employer]. Comment on above: Patient Position: Si tting; Cuff Location: Left Arm; Cuff Size: Standard 08-09-2014 09:19-0500 Heart rate 102 /min Martha [place] COMPUTER SYSTEMS INFORMATION DIRECTOR Work Phone: [employer]. Comment on above: Pattern: Regular 08-09-2014 09:19-0500 Systolic blood pressure 121 mm[Hg] Martha America COMPUTER SYSTEMS INFORMATION DIRECTOR Work Phone: [employer] [employer]. Comment on above: Patient Position: Si tting; Cuff Location: Left Arm; Cuff Size: Standard 07-19-2014 09:17-0500 Body weight 108.41 kg Martha [place] COMPUTER SYSTEMS INFORMATION DIRECTOR Work Phone: [employer] [employer]. 07-19-2014 09:17-0500 Diastolic blood pressure 81 mm[Hg] Martha America COMPUTER SYSTEMS INFORMATION DIRECTOR Work Phone: [employer] [employer]. Comment on above: Patient Position: Si tting; Cuff Location: Right Arm; Cuff Size: Large 07-19-2014 09:17-0500 Heart rate 104 /min Martha America COMPUTER SYSTEMS INFORMATION DIRECTOR Work Phone: [employer]; [employer]. Comment on above: Pattern: Regular 07-19-2014 09:17-0500 Systolic blood pressure 141 mm[Hg] Martha [place] COMPUTER SYSTEMS INFORMATION DIRECTOR Work Phone: [employer]. Comment on above: Patient Position: Si tting; Cuff Location: Right Arm; Cuff Size: Large 06-21-2014 09:270400 Body weight 105.69 kg Martha [place] COMPUTER SYSTEMS INFORMATION DIRECTOR Work Phone: [employer] [employer]. 06-21-2014 09:27-0400 Diastolic blood pressure 86 mm[Hg] Martha [place] COMPUTER SYSTEMS INFORMATION DIRECTOR Work Phone: [employer]; [employer]. Comment on above: Patient Position: Si tting; Cuff Location: Left Arm; Cuff Size: Large 06-21-2014 09:27-0400 Systolic blood pressure 145 mm[Hg] Martha [place] COMPUTER SYSTEMS INFORMATION DIRECTOR Work Phone: [employer]. Comment on above: Patient Position: Si tting; Cuff Location: Left Arm; Cuff Size: Large 05-19-2014 11:47-0400 Body weight 104.33 kg Martha [place] COMPUTER SYSTEMS INFORMATION DIRECTOR Work Phone: [employer]. 05-19-2014 11:47-0400 Diastolic blood pressure 78 mm[Hg] Martha [place] COMPUTER SYSTEMS INFORMATION DIRECTOR Work Phone: [employer]. Comment on above: Patient Position: Si tting; Cuff Location: Left Arm; Cuff Size: Standard 05-19-2014 11:47-0400 Heart rate 78 /min Martha [place] COMPUTER SYSTEMS INFORMATION DIRECTOR Work Phone: [employer]. Comment on above: Pattern: Regular 05-19-2014 11:47-0400 Systolic blood pressure 137 mm[Hg] Martha [place] COMPUTER SYSTEMS INFORMATION DIRECTOR Work Phone: [employer]. Comment on above: Patient Position: Si tting; Cuff Location: Left Arm; Cuff Size: Standard 04-19-2014 13:42-0400 Body weight 100.25 kg Martha [place] COMPUTER SYSTEMS INFORMATION DIRECTOR Work Phone: [employer]. 04-19-2014 13:42-0400 Diastolic blood pressure 81 mm[Hg] Martha [place] COMPUTER SYSTEMS INFORMATION DIRECTOR Work Phone: [employer]. Comment on above: Patient Position: Si tting; Cuff Location: Left Arm; Cuff Size: Standard 04-19-2014 13:42-0400 Heart rate 96 /min Martha [place] COMPUTER SYSTEMS INFORMATION DIRECTOR Work Phone: [employer]; [employer]. Comment on above: Pattern: Regular 04-19-2014 13:42-0400 Systolic blood pressure 127 mm[Hg] Martha [place] COMPUTER SYSTEMS INFORMATION DIRECTOR Work Phone: [employer]. Comment on above: Patient Position: Si tting; Cuff Location: Left Arm; Cuff Size: Standard 03-22-2014 09:29-0400 Body weight 100.25 kg Martha [place] COMPUTER SYSTEMS INFORMATION DIRECTOR Work Phone: [employer]; [employer]. 03-22-2014 09:29-0400 Diastolic blood pressure 77 mm[Hg] Monitise COMPUTER SYSTEMS INFORMATION DIRECTOR Work Phone: [employer]; [employer]. Comment on above: Patient Position: Si tting; Cuff Location: Left Arm; Cuff Size: Standard 03-22-2014 09:29-0400 Heart rate 82 /min [employer] Work Phone: [employer]; [employer]. Comment on above: Pattern: Regular 03-22-2014 09:29-0400 Systolic blood pressure 131 mm[Hg] Martha [place] COMPUTER SYSTEMS INFORMATION DIRECTOR Work Phone: [employer]; [employer]. Comment on above: Patient Position: Si tting; Cuff Location: Left Arm; Cuff Size: Standard 02-19-2014 15:18-0400 Body height 165.1 cm [employer] Work Phone: [employer]; [employer]. 02-19-2014 15:18-0400 Body mass index (BMI) [Ratio] 36.78 kg/m2 [employer] Work Phone: [employer]; [employer]. 02-19-2014 15:18-0400 Body surface area Derived from formula 2.06 m2 [employer] Work Phone: [employer]; [employer]. 02-19-2014 15:18-0400 Body weight 100.25 kg Martha Cross LPN Work Phone: [employer]. 02-19-2014 15:18-0400 Diastolic blood pressure 85 mm[Hg] Martha Cross LPN Work Phone: [employer] [employer]. Comment on above: Patient Position: Si tting; Cuff Location: Left Arm; Cuff Size: Large 02-19-2014 15:18-0400 Heart rate 88 /min Matrha Cross LPN Work Phone: [employer]. Comment on above: Pattern: Regular 02-19-2014 15:18-0400 Systolic blood pressure 127 mm[Hg] Martha Cross LPN Work Phone: [employer]. Comment on above: Patient Position: Si tting; Cuff Location: Left Arm; Cuff Size: Large Encounters Encounter Date Encounter Type Care Provider Facility Start: 01-27-2025 End: 01-27-2025 Orders Saima Ferraro MD Work Phone: [employer] Start: 01-18-2023 ambulatory Saima Snyderi ty:[facility] Start: 12-27-2022 End: 12-27-2022 Patient encounter procedure Saima Ferraro MD Work Phone: [employer] Start: 10-08-2022 End: 10-08-2022 Patient encounter procedure Saima Ferraro MD Work Phone: [facility]. Start: 10-08-2022 End: 10-08-2022 Patient encounter procedure Saima Ferraro MD Work Phone: [employer]. Start: 10-08-2022 End: 10-08-2022 Patient encounter status Saima Ferraro MD Work Phone: [employer] [employer]. Start: 08-27-2022 End: 08-27-2022 Orders Saima Ferraro MD Work Phone: [employer] Start: 07-12-2022 End: 07-12-2022 Orders Saima Ferraro MD Work Phone: [employer] Start: 02-18-2019 End: 02-18-2019 Patient encounter procedure Saima Ferraro MD Work Phone: [employer] Start: 02-18-2019 End: 02-18-2019 Preprocedural examination done Saima Ferraro MD Work Phone: [employer]; [employer] Start: 09-18-2018 End: 09-18-2018 Patient encounter procedure Saima Ferraro MD Work Phone: [employer] Start: 09-18-2018 End: 09-18-2018 Patient encounter status Saima Ferraro MD Work Phone: [employer]; [employer] Start: 08-28-2018 End: 08-28-2018 Orders Saima Ferraro MD Work Phone: [employer] Start: 07-28-2018 End: 07-28-2018 Orders Saima Ferraro MD Work Phone: [employer] Start: 03-24-2018 End: 03-24-2018 Patient encounter JOSE LUIS [facility] Start: 03-11-2018 End: 03-11-2018 Historical Summary Saima Ferraro MD Work Phone: [employer] Start: 03-05-2018 End: 03-05-2018 Patient encounter BYRON Mcdowell SAIRA [facility] Start: 02-25-2018 End: 02-25-2018 Patient encounter BYRON Mcdowell SAIRA [facility] Start: 02-19-2018 End: 02-19-2018 Patient encounter AXEL FRANK [facility] Start: 02-17-2018 End: 02-17-2018 Office outpatient visit 15 minutes Saima Ferraro MD Work Phone: [employer] Start: 02-12-2018 End: 02-12-2018 Orders Saima Ferraro MD Work Phone: [employer] Start: 10-15-2017 End: 10-15-2017 Patient encounter SAIMA FERRARO [facility] Start: 10-14-2017 End: 10-14-2017 Telephone follow-up Saima Ferraro MD Work Phone: [employer] Start: 10-14-2017 End: 10-15-2017 Patient encounter procedure Saima Ferraro MD Work Phone: [employer] Start: 09-10-2017 End: 09-10-2017 Office outpatient visit 15 minutes Saima Ferraro MD Work Phone: [employer] Start: 09-06-2017 End: 09-06-2017 Patient encounter procedure Saima Ferraro MD Work Phone: [employer] Start: 06-24-2017 End: 06-24-2017 Patient encounter procedure Saima Ferraro MD Work Phone: [employer] Start: 04-03-2017 End: 04-03-2017 Nursing evaluation of patient and report Saima Ferraro MD Work Phone: [employer] [facility] Start: 04-01-2017 End: 04-01-2017 Orders Saima Ferraro MD Work Phone: [employer] [facility] Start: 02-15-2017 End: 02-15-2017 Patient encounter procedure Saima Ferraro MD Work Phone: [employer] Start: 01-10-2017 End: 01-10-2017 Nursing evaluation of patient and report Saima Ferraro MD Work Phone: [employer] [facility] Start: 01-09-2017 End: 01-10-2017 Orders Saima Ferraro MD Work Phone: [employer] [facility] Start: 10-17-2016 End: 10-17-2016 Nursing evaluation of patient and report Saima Ferraro MD Work Phone: [employer] Start: 07-26-2016 End: 07-26-2016 Nursing evaluation of patient and report Saima Ferraro MD Work Phone: [employer] Start: 05-04-2016 End: 05-04-2016 Orders Saima Ferraro MD Work Phone: [employer] Start: 04-11-2016 End: 04-19-2016 Patient encounter procedure Saima Ferraro MD Work Phone: [employer] Start: 02-15-2016 End: 02-15-2016 Nursing evaluation of patient and report Saima Ferraro MD Work Phone: [employer] Start: 01-02-2016 End: 01-02-2016 Patient encounter procedure Saima Ferraro MD Work Phone: [employer] Start: 11-25-2015 End: 11-25-2015 Nursing evaluation of patient and report Saima Ferraro MD Work Phone: [employer] Start: 09-14-2015 End: 09-14-2015 Nursing evaluation of patient and report Saima Ferraro MD Work Phone: [employer] Start: 09-02-2015 End: 09-02-2015 Nursing evaluation of patient and report Saima Ferraro MD Work Phone: [employer] Start: 06-13-2015 End: 06-13-2015 Orders Saima Ferraro MD Work Phone: [employer] Start: 05-31-2015 End: 05-31-2015 Office outpatient visit 15 minutes Saima Ferraro MD Work Phone: [employer] Start: 03-22-2015 End: 03-22-2015 Orders Saima Ferraro MD Work Phone: [employer] Start: 12-29-2014 End: 12-29-2014 Patient encounter procedure Saima Ferraro MD Work Phone: [employer] Start: 10-27-2014 End: 10-27-2014 Patient encounter procedure Saima Ferraro MD Work Phone: [employer] Start: 09-23-2014 End: 09-23-2014 Patient encounter procedure Saima Ferraro MD Work Phone: [employer] Start: 08-23-2014 End: 08-23-2014 Patient encounter procedure Saima Ferraro MD Work Phone: [employer] Start: 08-09-2014 End: 08-09-2014 Patient encounter procedure Saima Ferraro MD Work Phone: [employer] Start: 07-19-2014 End: 07-19-2014 Patient encounter procedure Saima Ferraro MD Work Phone: [employer] [facility] Start: 06-21-2014 End: 06-21-2014 Orders Saima Ferraro MD Work Phone: [employer] Start: 06-21-2014 End: 06-21-2014 Patient encounter procedure Saima Ferraro MD Work Phone: [employer] Start: 05-19-2014 End: 05-19-2014 Patient encounter procedure Saima Ferraro MD Work Phone: [employer] Start: 04-19-2014 End: 04-19-2014 Patient encounter procedure Saima Ferraro MD Work Phone: [employer] Start: 03-22-2014 End: 03-22-2014 Patient encounter procedure Saima Ferraro MD Work Phone: [employer] Start: 02-23-2014 End: 02-23-2014 Historical Summary Saima Ferraro MD Work Phone: [employer] Start: 02-19-2014 End: 02-19-2014 Patient encounter procedure Saima Ferraro MD Work Phone: [employer] Start: 02-01-2014 End: 05-19-2014 Nursing evaluation of patient and report Saima Ferraro MD Work Phone: [facility] Patient encounter status Martha weiner COMPUTER SYSTEMS INFORMATION DIRECTOR Work Phone: [facility] Procedures Date Procedure Procedure Detail Performing Clinician Start: 10-08-2022 End: 10-08-2022 Body mass index documented Saima valladares MD Work Phone: Start: 10-08-2022 End: 10-08-2022 Depression screening Saima Ferraro MD Work Phone: Start: 10-08-2022 End: 10-08-2022 Microscopic examination of cervical Papanicolaou smear Saima Ferraro MD Work Phone: Comment on above: Within Normal Limits. remote at , stat es was wnl, 03/2016 neg, 09/18/18 co-test neg, 10/08/22 neg, co-test neg Start: 10-08-2022 End: 10-08-2022 Pos clin depres scrn f/u doc Saima Ferraro MD Work Phone: Start: 08-27-2022 End: 08-27-2022 Lab findings surveillance Martha Cesar PN Work Phone: Comment on above: 91 Start: 08-27-2022 End: 08-27-2022 Lipid panel Martha Cross LPN Work Phone: Comment on above: Normal. tc 199 hdl 56 ldl 120 trig 124 Start: 09-18-2018 End: 09-18-2018 Body mass index documented Saima valladares MD Work Phone: Start: 03-05-2018 End: 03-05-2018 Cholecystectomy Martha Cross COMPUTER SYSTEMS INFORMATION DIRECTOR Work Phone: Comment on above: 03/05/[address] Carrillo Start: 02-17-2018 End: 02-19-2018 Us abdominal real time w/image limited Axel Frank MD Work Phone: Start: 02-17-2018 End: 02-17-2018 Body mass index documented Axel Frank MD Work Phone: Start: 10-14-2017 End: 10-14-2017 Body mass index documented Saima valladares MD Work Phone: Start: 10-14-2017 End: 10-14-2017 Flu imm no admin doc marco cotter MD Work Phone: Start: 09-10-2017 End: 09-10-2017 Body mass index documented Axel Frank MD Work Phone: Start: 06-24-2017 End: 06-24-2017 Flu imm no admin doc marco cotter MD Work Phone: Start: 06-24-2017 End: 06-24-2017 Body mass index documented Saima valladares MD Work Phone: Start: 04-03-2017 End: 04-03-2017 Medroxyprogesterone acetate Saima hayes MD Work Phone: Start: 01-10-2017 End: 01-10-2017 Medroxyprogesterone acetate Saima hayes MD Work Phone: Start: 10-17-2016 End: 10-17-2016 Medroxyprogesterone acetate Saima hayes MD Work Phone: Start: 07-26-2016 End: 07-26-2016 Medroxyprogesterone acetate Saima hayes MD Work Phone: Start: 05-04-2016 End: 05-04-2016 Medroxyprogesterone acetate Saima hayes MD Work Phone: Start: 04-11-2016 End: 04-19-2016 Us pelvic nonobstetric real-time image complete Saima Ferraro MD Work Phone: Start: 02-15-2016 End: 02-15-2016 Medroxyprogesterone acetate Saima hayes MD Work Phone: Start: 11-25-2015 End: 11-25-2015 Medroxyprogesternitza hayes MD Work Phone: Start: 09-02-2015 End: 09-02-2015 Medroxyprogesterone acetate Saima hayes MD Work Phone: Start: 06-13-2015 End: 06-13-2015 Medroxyprogesternitza acetate Saima hayes MD Work Phone: Start: 03-22-2015 End: 03-22-2015 Medroxyprogesterone acetate Saima hayes MD Work Phone: Start: 12-29-2014 End: 12-29-2014 Medroxyprogesterone acetate Saima hayes MD Work Phone: Start: 09-06-2014 End: 09-06-2014 section Martha Cross LPN Work Phone: Start: 08-23-2014 End: 08-23-2014 Ob care antepartum vag dlvr & Saima Ferraro MD Work Phone: Start: 08-09-2014 End: 08-09-2014 Ob care antepartum vag dlvr & Saima Ferraro MD Work Phone: Start: 07-19-2014 End: 07-19-2014 Ob care antepartum vag dlvr & Saima Ferraro MD Work Phone: Start: 06-21-2014 End: 06-21-2014 Rhophylac injection Saima Ferraro MD Work Phone: Start: 06-21-2014 End: 06-21-2014 Ob care antepartum vag dlvr & Saima Ferraro MD Work Phone: Start: 05-19-2014 End: 05-19-2014 Ob care antepartum vag dlvr & Saima Ferraro MD Work Phone: Start: 04-19-2014 End: 04-19-2014 Ob care antepartum vag dlvr & Saima Ferraro MD Work Phone: Start: 03-22-2014 End: 03-22-2014 Ob care antepartum vag dlvr & Saima Ferraro MD Work Phone: Start: 02-19-2014 End: 02-19-2014 uterus 14 wk transabdl 09/16 gestat Saima Ferraro MD Work Phone: Start: 02-19-2014 End: 02-19-2014 Ob care antepartum vag dlvr & Saima Ferraro MD Work Phone: Start: 09-16-2012 End: 09-16-2012 [place] Martha America COMPUTER SYSTEMS INFORMATION DIRECTOR Work Phone: H/O: section H/O: [place] COMPUTER SYSTEMS INFORMATION DIRECTOR Work Phone: H/O: section H/O: [place] [employer]PUTER SYSTEMS INFORMATION DIRECTOR Work Phone: H/O: section H/O: Saima Ferraro MD Work Phone: History of cholecystectomy Histo ry of cholecystectomy Martha America COMPUTER SYSTEMS INFORMATION DIRECTOR Work Phone: History of cholecystectomy Histo ry of cholecystectomy Martha America COMPUTER SYSTEMS INFORMATION DIRECTOR Work Phone: [employer] [facility] Work Phone: Comment on above: 2013 Plan of Treatment Date Care Activity Detail Author Start: 09-23-2014 Provider Instruction s for Treatment Follow up in 6 weeks Indication: care and examination immediately after delivery Start: 23-Sep-2014 Instruction Type: Provider Instructions for Treatment [facility] [employer] Immunizations Immunization Date Immunization Notes Care Provider Richi pillai 09-14-2015 hepatitis A vaccine, adult dosage Saima Ferraro MD Work Phone: [employer]. Comment on above: Site: Deltoid (Right )VIS Given: * Hepatitis A Vaccine (07/10/11) 09-24-2013 hepatitis A vaccine, adult dosage Saima Ferraro MD Work Phone: [employer] 09-24-2013 tetanus toxoid, reduced diphtheria toxoid, and acellular pertussis vaccine, adsorbed Saima Ferraro MD Work [facility]: [facility] 03-05-2006 hepatitis B vaccine, pediatric or pediatric/adolescent dosage Saima Ferraro MD Work Phone: [facility].; [facility] 05-01-2005 hepatitis B vaccine, pediatric or pediatric/adolescent dosage Saima Ferraro MD Work [facility]: [facility].; [facility] 04-03-2005 hepatitis B vaccine, pediatric or pediatric/adolescent dosage Saima Ferraro MD Work [facility]: [facility].; [facility] 04-03-2005 measles, mumps and rubella virus vaccine Saima Ferraro MD Work Phone: [facility].; [facility] 04-13-1997 diphtheria, tetanus toxoids and pertussis vaccine Saima Ferraro MD Work Phone: [facility].; [facility] 04-13-1997 trivalent poliovirus vaccine, live, oral Saima Ferraro MD Work Phone: [facility].; [facility] 01-02-1994 diphtheria, tetanus toxoids and pertussis vaccine Saima Ferraro MD Work Phone: [facility].; [facility] 07-04-1993 diphtheria, tetanus toxoids and pertussis vaccine Saima Ferraro MD Work Phone: [facility] 07-04-1993 haemophilus influenz ae type b vaccine, PRP-T conjugate Saima Ferraro MD Work Phone: [facility] 07-04-1993 measles, mumps and rubella virus vaccine Saima Ferraro MD Work Phone: [facility]; [facility] 07-04-1993 trivalent poliovirus vaccine, live, oral Saima Ferraro MD Work Phone: [facility].; [facility] 05-03-1992 diphtheria, tetanus toxoids and pertussis vaccine Saima Ferraro MD Work Phone: [facility] 05-03-1992 haemophilus influenz ae type b vaccine, PRP-T conjugate Saima Ferraro MD Work Phone: [facility] [place] [employer] 05-03-1992 trivalent poliovirus vaccine, live, oral Saima Ferraro MD Work Phone: [facility] 01-05-1992 diphtheria, tetanus toxoids and pertussis vaccine Saima Ferraro MD Work Phone: [facility] 01-05-1992 haemophilus influenz ae type b vaccine, PRP-T conjugate Saima Ferraro MD Work Phone: [facility] 01-05-1992 trivalent poliovirus vaccine, live, oral Saima Ferraro MD Work Phone: [facility] [place] [employer] Payers Date Payer Category Payer Self-pay 2023 Unknown [id number] 2017 Unknown [id number] Unknown [id number] Unknown Social History Date Type Detail Facility Child(nam) Child(nam) [facility] [employer] [place] [employer] Marital status: Marital status: ; [facility]. [facility] Tobacco Use: Tobacco Use: ; Never smoker. [place] [employer] [employer] Female [facility] [employer].; [place] [employer] Work Phone: Never smoked tobacco [facility] Work Phone: Summary Purpose Family History clotting disorder Status:Active Comments:1st c ousin Father Status:Active Comments:In good health. Mother Status:Active Comments:In good health. Multiple Status:Active Comments:twin co usins Advance Directives No Advanced Directives Records FoundNo Advanced Directives Records FoundNo Advanced Directives Records FoundNo Advanced Directives Records Found Additional Source Comments INFORMATION SOURCE (unrecogn ized section and content) DATE CREATED AUTHOR 03/28/2018 [facility] DATE CREATED AUTHOR AUTHOR'S ORGANIZ ATION 04/07/2019 [facility] ([place]) DATE CREATED AUTHOR AUTHOR'S ORGANIZ ATION 10/10/2022 [facility] DATE CREATED AUTHOR AUTHOR'S ORGANIZ ATION 01/19/2023 [facility] FOR RECORDS PERTAINING TO PATIENTS WHO ARE OR HAVE BEEN ENROLLED IN A CHEMICAL DEPENDENCY/SUBSTANCEABUSE PROGRAM, SOME INFORMATION MAY BE OMITTED. This clinical summary was aggregated from multiple sources. Caution should be exercised in using it in the provision of clinical care. This summary normalizes information from multiple sources, and as a consequence, information in this document may materially change the coding, format and clinical context of patient data. In addition, data may be omitted in some cases. CLINICAL DECISIONS SHOULD BE BASED ON THE PRIMARY CLINICAL RECORDS. [facility]. provides no warranty or guarantee of the accuracy or completeness of information in this document.
== END | disposition home or self-care (01) ==
LOC: LABSPEC 15:55
PROVIDERS: PCP Family Medicine; Referring Provider Orthopaedic Surgery; Visit Provider Orthopaedic Surgery
DX: M71.341 Other bursal cyst, right hand (principal)
CPT/HCPCS: 88304